=== PATIENT | female | born 1970 | race African-American/Black ===

== ENCOUNTER 2018-10-21 06:41 | Inpatient (IN) | payer MEDICAID ==
[~2018-10-21] VITALS: Ht 152.4 cm; Wt 118.8 kg
[2018-10-21] MEDS ORDERED: IBUPROFEN 600MG TABLET PO STA (08:25)
[2018-10-21 09:05] LABS: CHLORIDE 101 mEq/L (98-107)
[2018-10-21 09:09] LABS: BASOPHILS % 0.9 % (0.0-2.0); EOSINOPHILS % 1.1 % (0.0-5.0); HEMATOCRIT. 27.1 % (36.0-48.0); HEMOGLOBIN. 7.7 g/dL (12.0-16.0); LYMPHOCYTES % 16.2 % (20.0-50.0); MEAN CORPUSCULAR HEMOGLOBIN 18.5 pg (28.0-32.0); MEAN CORPUSCULAR VOLUME 65.1 fL (81.0-99.0); MEAN PLATELET VOLUME 8.7 fl (7.4-10.4); MONOCYTES % 8.5 % (2.0-8.0); NEUTROPHILS % 73.3 % (40.0-76.0); PLATELET 586 x1000/uL (130-400); RED BLOOD CELL COUNT 4.17 mill/uL (4.2-5.4); RED CELL DISTRIBUTION WIDTH 23.2 % (11.6-14.6)
[2018-10-21 10:08] LABS: PLATELET ESTIMATE INCREASED
[2018-10-21] MEDS ORDERED: ASPIRIN 81MG TABLET PO ONE (12:15)
[2018-10-21 15:20] LABS: HEPATITIS B SURFACE ANTIGEN NEGATIVE
[2018-10-21 15:50] LABS: HEPATITIS A AB IGM NEGATIVE (NEGATIVE)
[2018-10-21 16:03] LABS: FERRITIN < 5 ng/mL (10-291)
[2018-10-21] MEDS: MORPHINE SULFATE 4 MG/ML CPJ (NOT FOR IM USE) IV PRN (21:52)
[2018-10-21] MEDS ORDERED: IOHEXOL-350 100 ML BOTTLE ONE (23:01)
[2018-10-22] VITALS (12 sets, daily range): BP systolic 125–176; BP diastolic 66–93
[2018-10-22] MEDS: FERROUS SULFATE 325MG TABLET PO SCH ×3 (08:00→18:00)
[2018-10-22] MEDS: ASPIRIN 81MG TABLET PO SCH (09:00)
[2018-10-22] MEDS: DOCUSATE SODIUM 100MG CAPSULE PO SCH ×2 (09:00→17:00)
[2018-10-22 10:53] LABS: BASOPHILS % 0.7 % (0.0-2.0); EOSINOPHILS % 0.1 % (0.0-5.0); HEMATOCRIT. 28.8 % (36.0-48.0); HEMOGLOBIN. 7.9 g/dL (12.0-16.0); LYMPHOCYTES % 13.5 % (20.0-50.0); MEAN CORPUSCULAR HEMOGLOBIN 18.4 pg (28.0-32.0); MEAN CORPUSCULAR VOLUME 66.5 fL (81.0-99.0); MEAN PLATELET VOLUME 8.9 fl (7.4-10.4); MONOCYTES % 6.6 % (2.0-8.0); NEUTROPHILS % 79.1 % (40.0-76.0); PLATELET 647 x1000/uL (130-400); RED BLOOD CELL COUNT 4.33 mill/uL (4.2-5.4); RED CELL DISTRIBUTION WIDTH 23.3 % (11.6-14.6)
[2018-10-22 11:02] LABS: CHLORIDE 99 mEq/L (98-107)
[2018-10-22] MEDS: ENOXAPARIN 30MG/0.3ML SYR SUBCUT SCH (13:00)
[2018-10-22 16:00] LABS: T4 FREE 1.15 ng/dL (0.76-1.46)
[2018-10-22 16:14] LABS: CREATINE KINASE MB FRACTION 8.7 ng/mL (0.5-3.6)
[2018-10-22 20:15] LABS: BG BASE EXCESS 4.2 mmol/L (-2.0-2.0); BG CARBOXYHEMOGLOBIN 1.4 % (0.5-1.5); BG DEOXYHEMOGLOBIN 17.7 % (0.0-5.0); BG FRACTION INSPIRED OXYGEN 28; BG HCO3 ACT 33.2 mmol/L (22.0-26.0); BG METHEMOGLOBIN 0.5 % (0.0-1.5); BG OXYHEMOGLOBIN 80.4 % (94.0-97.0); BG PCO2 82.7 mmHg (35.0-45.0); BG PH 7.221 (7.350-7.450); BG PO2 57.3 mmHg (75.0-100.0); BG SAMPLE SITE LEFT RADIAL; BG TOTAL HEMOGLOBIN 8.6 g/dL (12.0-18.0); BG VENT MODE NASAL CANNULA
[2018-10-22 23:06] LABS: BG BASE EXCESS 7.8 mmol/L (-2.0-2.0); BG BILEVEL POS AIRWAY PRESSURE 18/5; BG CARBOXYHEMOGLOBIN 1.6 % (0.5-1.5); BG DEOXYHEMOGLOBIN 4.3 % (0.0-5.0); BG FRACTION INSPIRED OXYGEN 60; BG HCO3 ACT 35.8 mmol/L (22.0-26.0); BG METHEMOGLOBIN 0.6 % (0.0-1.5); BG OXYGEN SATURATION 95.6 % (92.0-98.5); BG OXYHEMOGLOBIN 93.5 % (94.0-97.0); BG PCO2 76.3 mmHg (35.0-45.0); BG PH 7.289 (7.350-7.450); BG PO2 90.8 mmHg (75.0-100.0); BG SAMPLE SITE RIGHT RADIAL; BG TOTAL HEMOGLOBIN 8.3 g/dL (12.0-18.0); BG VENT MODE MASK - BIPAP; BG VENT RATE 20 set
[2018-10-23] VITALS (102 sets, daily range): BP systolic 112–174; BP diastolic 53–117
[2018-10-23] MEDS: ENOXAPARIN 30MG/0.3ML SYR SUBCUT SCH (00:19)
[2018-10-23 01:55] LABS: CREATINE KINASE MB FRACTION 8.7 ng/mL (0.5-3.6)
[2018-10-23 05:34] LABS: BASOPHILS % 0.2 % (0.0-2.0); HEMATOCRIT. 24.8 % (36.0-48.0); MEAN CORPUSCULAR HEMOGLOBIN 18.1 pg (28.0-32.0); MEAN CORPUSCULAR VOLUME 64.9 fL (81.0-99.0); MEAN PLATELET VOLUME 8.8 fl (7.4-10.4); MONOCYTES % 8.2 % (2.0-8.0); NEUTROPHILS % 80.6 % (40.0-76.0); PLATELET 512 x1000/uL (130-400); RED BLOOD CELL COUNT 3.83 mill/uL (4.2-5.4); RED CELL DISTRIBUTION WIDTH 23.2 % (11.6-14.6)
[2018-10-23 05:39] LABS: CHLORIDE 102 mEq/L (98-107)
[2018-10-23 05:47] LABS: CREATINE KINASE MB FRACTION 6.6 ng/mL (0.5-3.6)
[2018-10-23 06:25] LABS: HEMOGLOBIN. 6.9 g/dL (12.0-16.0)
[2018-10-23] MEDS: HALOPERIDOL LACTATE 5MG/ML VIAL IM PRN (06:56)
[2018-10-23] MEDS: LORAZEPAM 2MG/ML CPJ IV PRN ×2 (06:57→14:06)
[2018-10-23] MEDS: FERROUS SULFATE 325MG TABLET PO SCH ×3 (07:00→17:00)
[2018-10-23 08:19] LABS: BG BASE EXCESS 7.2 mmol/L (-2.0-2.0); BG BILEVEL POS AIRWAY PRESSURE 18/5; BG DEOXYHEMOGLOBIN 3.9 % (0.0-5.0); BG HCO3 ACT 35.5 mmol/L (22.0-26.0); BG METHEMOGLOBIN 0.4 % (0.0-1.5); BG OXYHEMOGLOBIN 94.7 % (94.0-97.0); BG PCO2 79.2 mmHg (35.0-45.0); BG PH 7.269 (7.350-7.450); BG PO2 95.5 mmHg (75.0-100.0); BG SAMPLE SITE RIGHT BRACHIAL; BG TOTAL HEMOGLOBIN 8.3 g/dL (12.0-18.0); BG VENT MODE MASK - BIPAP; BG VENT RATE 20 set
[2018-10-23] MEDS: ASPIRIN 81MG TABLET PO SCH (09:00)
[2018-10-23] MEDS: DOCUSATE SODIUM 100MG CAPSULE PO SCH ×2 (09:00→17:00)
[2018-10-23] MEDS: DEXT 5%/0.45% NACL 1000ML 1,000 ML IV SCH ×2 (10:44→21:44)
[2018-10-23 12:08] LABS: BG BASE EXCESS 8.8 mmol/L (-2.0-2.0); BG CARBOXYHEMOGLOBIN 0.9 % (0.5-1.5); BG DEOXYHEMOGLOBIN 30.2 % (0.0-5.0); BG HCO3 ACT 36.1 mmol/L (22.0-26.0); BG METHEMOGLOBIN 0.7 % (0.0-1.5); BG OXYGEN SATURATION 69.3 % (92.0-98.5); BG OXYHEMOGLOBIN 68.2 % (94.0-97.0); BG PCO2 70.3 mmHg (35.0-45.0); BG PH 7.329 (7.350-7.450); BG PO2 40.2 mmHg (75.0-100.0); BG SAMPLE SITE RIGHT RADIAL; BG TIDAL VOLUME(mL) 550 mL; BG TOTAL HEMOGLOBIN 8.3 g/dL (12.0-18.0); BG VENT MODE VENT - A/C; BG VENT RATE 18 set
[2018-10-23] MEDS ORDERED: CLONIDINE 0.1MG TABLET PO PRN (12:45)
[2018-10-23] MEDS: PROPOFOL 10MG/ML 100ML 100 ML IV PRN ×4 (12:47→21:45)
[2018-10-23 12:53] LABS: HCG SCREEN NEGATIVE
[2018-10-23] MEDS ORDERED: SODIUM CHLORIDE 0.9% 10ML VIAL ONE (13:20)
[2018-10-23] MEDS ORDERED: ETOMIDATE 2MG/ML 10ML VIAL IV ONE (13:20)
[2018-10-23] MEDS ORDERED: VECURONIUM BROMIDE 10 MG/VIAL IV ONE (13:20)
[2018-10-23] MEDS: IPRATROPIUM/ALBUTEROL 0.5-3(2.5)MG/3ML NEB HHN PRN (13:24)
[2018-10-23] MEDS ORDERED: FENTANYL CITRATE/PF 500 MCG in SODIUM CHLORIDE 0.9% 40 ML IV PRN (14:30)
[2018-10-23 15:24] LABS: *AMPHETAMINES SCREEN URINE NEGATIVE (NEGATIVE)
[2018-10-23 15:25] LABS: *BARBITURATES SCREEN URINE NEGATIVE (NEGATIVE); *BENZODIAZEPINES SCREEN URINE NEGATIVE (NEGATIVE); *COCAINE SCREEN URINE NEGATIVE (NEGATIVE); METHADONE URINE SCREEN NEGATIVE (NEGATIVE); OPIATES URINE SCREEN NEGATIVE (NEGATIVE); PHENCYCLIDINE URINE SCREEN NEGATIVE (NEGATIVE)
[2018-10-23 15:27] LABS: CANNABINOID URINE SCREEN NEGATIVE (NEGATIVE)
[2018-10-23 15:30] LABS: BG BASE EXCESS 10.1 mmol/L (-2.0-2.0); BG CARBOXYHEMOGLOBIN 0.6 % (0.5-1.5); BG DEOXYHEMOGLOBIN 0.3 % (0.0-5.0); BG FRACTION INSPIRED OXYGEN 100; BG HCO3 ACT 31.6 mmol/L (22.0-26.0); BG METHEMOGLOBIN 0.2 % (0.0-1.5); BG OXYGEN SATURATION 99.7 % (92.0-98.5); BG OXYHEMOGLOBIN 98.9 % (94.0-97.0); BG PCO2 30.2 mmHg (35.0-45.0); BG PH 7.638 (7.350-7.450); BG PO2 295.2 mmHg (75.0-100.0); BG SAMPLE SITE RIGHT RADIAL; BG TIDAL VOLUME(mL) 550 mL; BG TOTAL HEMOGLOBIN 7.9 g/dL (12.0-18.0); BG VENT MODE VENT - A/C; BG VENT RATE 18 set
[2018-10-23] MEDS: FENTANYL CITRATE/PF 500 MCG in SODIUM CHLORIDE 0.9% 40 ML IV PRN ×2 (15:41→23:11)
[2018-10-23] MEDS: FUROSEMIDE 40MG/4ML VIAL IVP SCH (17:12)
[2018-10-23] MEDS: METHYLPREDNISOLONE SOD SUCC 40 MG/ML VIAL IV SCH ×2 (17:12→21:15)
[2018-10-23 23:52] LABS: HEMATOCRIT 31.3 % (36.0-48.0); HEMOGLOBIN 9.4 g/dL (12.0-16.0)
[2018-10-24] VITALS (67 sets, daily range): BP systolic 116–146; BP diastolic 60–93
[2018-10-24] MEDS: LORAZEPAM 2MG/ML CPJ IV PRN (00:34)
[2018-10-24] MEDS: PROPOFOL 10MG/ML 100ML 100 ML IV PRN ×7 (00:44→20:04)
[2018-10-24 01:28] LABS: INR 1.2
[2018-10-24] MEDS: METHYLPREDNISOLONE SOD SUCC 40 MG/ML VIAL IV SCH ×3 (05:33→20:05)
[2018-10-24 05:34] LABS: BG BASE EXCESS 9.3 mmol/L (-2.0-2.0); BG CARBOXYHEMOGLOBIN 0.2 % (0.5-1.5); BG DEOXYHEMOGLOBIN 5.6 % (0.0-5.0); BG FRACTION INSPIRED OXYGEN 40; BG HCO3 ACT 31.5 mmol/L (22.0-26.0); BG OXYGEN SATURATION 94.3 % (92.0-98.5); BG OXYHEMOGLOBIN 93.2 % (94.0-97.0); BG PCO2 34.3 mmHg (35.0-45.0); BG PH 7.581 (7.350-7.450); BG PO2 65.6 mmHg (75.0-100.0); BG SAMPLE SITE RIGHT RADIAL; BG TIDAL VOLUME(mL) 550 mL; BG VENT MODE VENT - A/C; BG VENT RATE 14 set
[2018-10-24] MEDS: FERROUS SULFATE 325MG TABLET PO SCH ×3 (06:04→17:46)
[2018-10-24 06:24] LABS: HEMATOCRIT. 31.4 % (36.0-48.0); HEMOGLOBIN. 9.3 g/dL (12.0-16.0); MEAN CORPUSCULAR HEMOGLOBIN 19.7 pg (28.0-32.0); MEAN CORPUSCULAR VOLUME 66.4 fL (81.0-99.0); MEAN PLATELET VOLUME 9.5 fl (7.4-10.4); PLATELET 433 x1000/uL (130-400); RED BLOOD CELL COUNT 4.73 mill/uL (4.2-5.4); RED CELL DISTRIBUTION WIDTH 25.5 % (11.6-14.6)
[2018-10-24 06:32] LABS: CHLORIDE 103 mEq/L (98-107)
[2018-10-24] MEDS: DOCUSATE SODIUM SUGAR FREE 100MG/10ML UDC NG SCH ×2 (09:16→17:46)
[2018-10-24] MEDS: FUROSEMIDE 40MG/4ML VIAL IVP SCH (09:16)
[2018-10-24] MEDS: ASPIRIN 81MG TABLET PO SCH (09:16)
[2018-10-24] MEDS ORDERED: CLOPIDOGREL 75MG TABLET PO SCH (10:00)
[2018-10-24] MEDS ORDERED: VANCOMYCIN 2,000 MG in DEXT 5% WATER 500 ML IV SCH (11:00)
[2018-10-24] MEDS: FENTANYL CITRATE/PF 500 MCG in SODIUM CHLORIDE 0.9% 40 ML IV PRN (11:20)
[2018-10-24] MEDS: LACTULOSE 20G/30ML UDC PO SCH (11:22)
[2018-10-24] MEDS: PIPERACILLIN/TAZ 3.375G PREMIX 50 ML IV SCH ×3 (14:12→23:25)
[2018-10-24] MEDS: PANTOPRAZOLE SODIUM 40 MG/VIAL IV SCH (15:56)
[2018-10-24] MEDS: MORPHINE SULFATE 4 MG/ML CPJ (NOT FOR IM USE) IV PRN (23:23)
[2018-10-25] VITALS (89 sets, daily range): BP systolic 96–137; BP diastolic 42–81
[2018-10-25] MEDS: PROPOFOL 10MG/ML 100ML 100 ML IV PRN ×6 (02:09→22:23)
[2018-10-25] MEDS: FENTANYL CITRATE/PF 500 MCG in SODIUM CHLORIDE 0.9% 40 ML IV PRN ×2 (02:10→12:51)
[2018-10-25 05:59] LABS: HEMATOCRIT. 30.2 % (36.0-48.0); HEMOGLOBIN. 8.9 g/dL (12.0-16.0); MEAN CORPUSCULAR HEMOGLOBIN 19.7 pg (28.0-32.0); MEAN CORPUSCULAR VOLUME 66.6 fL (81.0-99.0); MEAN PLATELET VOLUME 8.8 fl (7.4-10.4); PLATELET 375 x1000/uL (130-400); RED BLOOD CELL COUNT 4.53 mill/uL (4.2-5.4); RED CELL DISTRIBUTION WIDTH 25.5 % (11.6-14.6)
[2018-10-25] MEDS: PIPERACILLIN/TAZ 3.375G PREMIX 50 ML IV SCH ×3 (06:08→18:30)
[2018-10-25] MEDS: VANCOMYCIN 1500MG in DEXTROSE 5% WATER 250ML IV SCH ×2 (06:08→22:58)
[2018-10-25] MEDS: FERROUS SULFATE 325MG TABLET PO SCH ×3 (06:09→18:30)
[2018-10-25 06:14] LABS: CHLORIDE 100 mEq/L (98-107)
[2018-10-25 08:40] LABS: BG BASE EXCESS 8.9 mmol/L (-2.0-2.0); BG CARBOXYHEMOGLOBIN 0.6 % (0.5-1.5); BG DEOXYHEMOGLOBIN 7.4 % (0.0-5.0); BG FRACTION INSPIRED OXYGEN 40; BG HCO3 ACT 34.7 mmol/L (22.0-26.0); BG METHEMOGLOBIN 0.3 % (0.0-1.5); BG OXYGEN SATURATION 92.5 % (92.0-98.5); BG OXYHEMOGLOBIN 91.7 % (94.0-97.0); BG PCO2 54.6 mmHg (35.0-45.0); BG PH 7.421 (7.350-7.450); BG PO2 68.9 mmHg (75.0-100.0); BG SAMPLE SITE LEFT RADIAL; BG TIDAL VOLUME(mL) 500 mL; BG TOTAL HEMOGLOBIN 9.9 g/dL (12.0-18.0); BG VENT MODE VENT - A/C; BG VENT RATE 12 set
[2018-10-25 09:05] LABS: NUCLEATED RED BLOOD CELLS 3 /100 WBC; PLATELET ESTIMATE NORMAL
[2018-10-25] MEDS: HALOPERIDOL LACTATE 5MG/ML VIAL IM PRN (09:40)
[2018-10-25] MEDS: PANTOPRAZOLE SODIUM 40 MG/VIAL IV SCH (09:40)
[2018-10-25] MEDS: METHYLPREDNISOLONE SOD SUCC 40 MG/ML VIAL IV SCH ×2 (09:40→21:32)
[2018-10-25] MEDS: DOCUSATE SODIUM SUGAR FREE 100MG/10ML UDC NG SCH ×2 (09:40→18:30)
[2018-10-25] MEDS: LACTULOSE 20G/30ML UDC PO SCH (09:40)
[2018-10-25] MEDS: LORAZEPAM 2MG/ML CPJ IV PRN ×3 (09:41→18:30)
[2018-10-25] MEDS: FUROSEMIDE 40MG/4ML VIAL IVP SCH (09:50)
[2018-10-25] MEDS ORDERED: POTASSIUM CHLORIDE 20MEQ TABLET SR PO NR (10:39)
[2018-10-25 13:15] LABS: NUCLEATED RED BLOOD CELLS 1 /100 WBC; PLATELET ESTIMATE INCREASED
[2018-10-26] VITALS (86 sets, daily range): BP systolic 103–135; BP diastolic 46–82
[2018-10-26] MEDS: FENTANYL CITRATE/PF 500 MCG in SODIUM CHLORIDE 0.9% 40 ML IV PRN ×3 (01:00→17:41)
[2018-10-26] MEDS: PIPERACILLIN/TAZ 3.375G PREMIX 50 ML IV SCH ×4 (01:03→17:25)
[2018-10-26] MEDS: PROPOFOL 10MG/ML 100ML 100 ML IV PRN ×7 (01:29→21:14)
[2018-10-26 05:49] LABS: HEMATOCRIT. 30.5 % (36.0-48.0); HEMOGLOBIN. 8.7 g/dL (12.0-16.0); MEAN CORPUSCULAR HEMOGLOBIN 19.4 pg (28.0-32.0); MEAN CORPUSCULAR VOLUME 67.9 fL (81.0-99.0); MEAN PLATELET VOLUME 8.8 fl (7.4-10.4); PLATELET 306 x1000/uL (130-400); RED CELL DISTRIBUTION WIDTH 25.9 % (11.6-14.6)
[2018-10-26 08:37] LABS: BG BASE EXCESS 6.4 mmol/L (-2.0-2.0); BG CARBOXYHEMOGLOBIN 0.8 % (0.5-1.5); BG DEOXYHEMOGLOBIN 4.5 % (0.0-5.0); BG FRACTION INSPIRED OXYGEN 40; BG METHEMOGLOBIN 0.2 % (0.0-1.5); BG OXYGEN SATURATION 95.5 % (92.0-98.5); BG OXYHEMOGLOBIN 94.5 % (94.0-97.0); BG PCO2 51.1 mmHg (35.0-45.0); BG PH 7.414 (7.350-7.450); BG PO2 80.5 mmHg (75.0-100.0); BG SAMPLE SITE LEFT RADIAL; BG TIDAL VOLUME(mL) 500 mL; BG TOTAL HEMOGLOBIN 9.7 g/dL (12.0-18.0); BG VENT MODE VENT - A/C; BG VENT RATE 12 set
[2018-10-26] MEDS ORDERED: POTASSIUM CHLORIDE 20MEQ TABLET SR PO SCH (09:00)
[2018-10-26] MEDS: FERROUS SULFATE 325MG TABLET PO SCH ×3 (09:17→17:25)
[2018-10-26] MEDS: DOCUSATE SODIUM SUGAR FREE 100MG/10ML UDC NG SCH (09:18)
[2018-10-26] MEDS: LACTULOSE 20G/30ML UDC PO SCH (09:18)
[2018-10-26] MEDS: PANTOPRAZOLE SODIUM 40 MG/VIAL IV SCH (09:18)
[2018-10-26] MEDS: FUROSEMIDE 40MG/4ML VIAL IVP SCH (09:19)
[2018-10-26] MEDS: LORAZEPAM 2MG/ML CPJ IV PRN ×2 (09:49→17:25)
[2018-10-26] MEDS: METHYLPREDNISOLONE SOD SUCC 40 MG/ML VIAL IV SCH ×2 (09:50→21:01)
[2018-10-26 11:51] LABS: NUCLEATED RED BLOOD CELLS 1 /100 WBC; PLATELET ESTIMATE NORMAL
[2018-10-26] MEDS ORDERED: DOCUSATE SODIUM 250MG CAPSULE PO SCH (12:30)
[2018-10-26] MEDS ORDERED: PROPOFOL 10MG/ML 100ML 100 ML IV PRN ×2 (17:15→18:45)
[2018-10-26] MEDS: IPRATROPIUM/ALBUTEROL 0.5-3(2.5)MG/3ML NEB HHN PRN (20:17)
[2018-10-26] MEDS: VANCOMYCIN 1250MG in DEXTROSE 5% WATER 250ML IV SCH (21:01)
[2018-10-27] VITALS (58 sets, daily range): BP systolic 97–163; BP diastolic 48–81
[2018-10-27] MEDS: IPRATROPIUM/ALBUTEROL 0.5-3(2.5)MG/3ML NEB HHN PRN ×6 (00:08→20:23)
[2018-10-27] MEDS: PROPOFOL 10MG/ML 100ML 100 ML IV PRN ×2 (01:35→06:58)
[2018-10-27 05:33] LABS: HEMATOCRIT. 32.2 % (36.0-48.0); HEMOGLOBIN. 9.3 g/dL (12.0-16.0); MEAN CORPUSCULAR HEMOGLOBIN 19.5 pg (28.0-32.0); MEAN CORPUSCULAR VOLUME 67.4 fL (81.0-99.0); MEAN PLATELET VOLUME 9.2 fl (7.4-10.4); PLATELET 252 x1000/uL (130-400); RED BLOOD CELL COUNT 4.79 mill/uL (4.2-5.4); RED CELL DISTRIBUTION WIDTH 25.9 % (11.6-14.6)
[2018-10-27] MEDS: PIPERACILLIN/TAZ 3.375G PREMIX 50 ML IV SCH ×4 (05:39→17:47)
[2018-10-27] MEDS: FERROUS SULFATE 325MG TABLET PO SCH ×3 (05:40→16:44)
[2018-10-27 06:19] LABS: CHLORIDE 103 mEq/L (98-107)
[2018-10-27 07:19] LABS: ATYPICAL LYMPHOCYTES 1; PLATELET ESTIMATE NORMAL
[2018-10-27] MEDS: FUROSEMIDE 40MG/4ML VIAL IVP SCH (08:34)
[2018-10-27] MEDS: DOCUSATE SODIUM SUGAR FREE 100MG/10ML UDC NG SCH (08:34)
[2018-10-27] MEDS: LACTULOSE 20G/30ML UDC PO SCH (08:34)
[2018-10-27] MEDS: METHYLPREDNISOLONE SOD SUCC 40 MG/ML VIAL IV SCH (08:34)
[2018-10-27] MEDS: PANTOPRAZOLE SODIUM 40 MG/VIAL IV SCH (08:35)
[2018-10-27 08:54] LABS: BG BASE EXCESS 6.3 mmol/L (-2.0-2.0); BG CARBOXYHEMOGLOBIN 0.6 % (0.5-1.5); BG DEOXYHEMOGLOBIN 4.3 % (0.0-5.0); BG FRACTION INSPIRED OXYGEN 40; BG HCO3 ACT 31.8 mmol/L (22.0-26.0); BG METHEMOGLOBIN 0.3 % (0.0-1.5); BG OXYGEN SATURATION 95.7 % (92.0-98.5); BG OXYHEMOGLOBIN 94.8 % (94.0-97.0); BG PCO2 50.8 mmHg (35.0-45.0); BG PH 7.415 (7.350-7.450); BG SAMPLE SITE RIGHT RADIAL; BG TIDAL VOLUME(mL) 500 mL; BG TOTAL HEMOGLOBIN 10.2 g/dL (12.0-18.0); BG VENT MODE VENT - A/C; BG VENT RATE 12 set
[2018-10-27] MEDS: POTASSIUM CHLORIDE 20MEQ/PACKET NG SCH (10:30)
[2018-10-27 11:33] LABS: BG BASE EXCESS 10.4 mmol/L (-2.0-2.0); BG CARBOXYHEMOGLOBIN 0.5 % (0.5-1.5); BG DEOXYHEMOGLOBIN 7.1 % (0.0-5.0); BG FRACTION INSPIRED OXYGEN 40; BG HCO3 ACT 37.2 mmol/L (22.0-26.0); BG METHEMOGLOBIN 0.3 % (0.0-1.5); BG OXYGEN SATURATION 92.8 % (92.0-98.5); BG OXYHEMOGLOBIN 92.1 % (94.0-97.0); BG PCO2 61.8 mmHg (35.0-45.0); BG PH 7.397 (7.350-7.450); BG PO2 70.2 mmHg (75.0-100.0); BG PRESSURE SUPPORT 8; BG SAMPLE SITE RIGHT RADIAL; BG TOTAL HEMOGLOBIN 11.1 g/dL (12.0-18.0); BG VENT MODE VENT - CPAP
[2018-10-27 13:35] LABS: BG BASE EXCESS 6.5 mmol/L (-2.0-2.0); BG CARBOXYHEMOGLOBIN 0.5 % (0.5-1.5); BG DEOXYHEMOGLOBIN 6.3 % (0.0-5.0); BG FRACTION INSPIRED OXYGEN 40; BG HCO3 ACT 32.7 mmol/L (22.0-26.0); BG METHEMOGLOBIN 0.4 % (0.0-1.5); BG OXYGEN SATURATION 93.6 % (92.0-98.5); BG OXYHEMOGLOBIN 92.8 % (94.0-97.0); BG PCO2 55.4 mmHg (35.0-45.0); BG PH 7.389 (7.350-7.450); BG PO2 75.1 mmHg (75.0-100.0); BG PRESSURE SUPPORT 8; BG SAMPLE SITE RIGHT RADIAL; BG TOTAL HEMOGLOBIN 11.1 g/dL (12.0-18.0); BG VENT MODE VENT - CPAP
[2018-10-27] MEDS: VANCOMYCIN 1250MG in DEXTROSE 5% WATER 250ML IV SCH (15:34)
[2018-10-27] MEDS: FENTANYL CITRATE/PF 500 MCG in SODIUM CHLORIDE 0.9% 40 ML IV PRN ×2 (16:29→22:46)
[2018-10-27] MEDS: LORAZEPAM 2MG/ML CPJ IV PRN ×2 (16:44→22:46)
[2018-10-28] VITALS (45 sets, daily range): BP systolic 100–140; BP diastolic 58–114
[2018-10-28] MEDS: IPRATROPIUM/ALBUTEROL 0.5-3(2.5)MG/3ML NEB HHN PRN ×3 (00:23→08:26)
[2018-10-28] MEDS: PIPERACILLIN/TAZ 3.375G PREMIX 50 ML IV SCH ×4 (00:47→18:01)
[2018-10-28] MEDS: FENTANYL CITRATE/PF 500 MCG in SODIUM CHLORIDE 0.9% 40 ML IV PRN ×4 (04:25→23:06)
[2018-10-28] MEDS: LORAZEPAM 2MG/ML CPJ IV PRN ×3 (04:25→22:17)
[2018-10-28] MEDS: FERROUS SULFATE 325MG TABLET PO SCH ×3 (05:27→18:01)
[2018-10-28 05:56] LABS: HEMATOCRIT. 32.6 % (36.0-48.0); HEMOGLOBIN. 9.2 g/dL (12.0-16.0); MEAN CORPUSCULAR HEMOGLOBIN 19.2 pg (28.0-32.0); MEAN CORPUSCULAR VOLUME 68.3 fL (81.0-99.0); MEAN PLATELET VOLUME 9.2 fl (7.4-10.4); PLATELET 195 x1000/uL (130-400); RED BLOOD CELL COUNT 4.78 mill/uL (4.2-5.4); RED CELL DISTRIBUTION WIDTH 25.9 % (11.6-14.6)
[2018-10-28 06:01] LABS: CHLORIDE 104 mEq/L (98-107)
[2018-10-28] MEDS ORDERED: LORAZEPAM 2MG/ML CPJ IV PRN (06:30)
[2018-10-28] MEDS ORDERED: POTASSIUM CHLORIDE 20MEQ TABLET SR PO NR (09:00)
[2018-10-28] MEDS: PANTOPRAZOLE SODIUM 40 MG/VIAL IV SCH (09:48)
[2018-10-28] MEDS: VANCOMYCIN 1250MG in DEXTROSE 5% WATER 250ML IV SCH (09:48)
[2018-10-28] MEDS: DOCUSATE SODIUM SUGAR FREE 100MG/10ML UDC NG SCH (09:48)
[2018-10-28] MEDS: FUROSEMIDE 40MG/4ML VIAL IVP SCH (09:48)
[2018-10-28] MEDS: POTASSIUM CHLORIDE 20MEQ/PACKET NG SCH (09:49)
[2018-10-28 10:43] LABS: PLATELET ESTIMATE NORMAL
[2018-10-28 11:45] LABS: BG BASE EXCESS 10.1 mmol/L (-2.0-2.0); BG CARBOXYHEMOGLOBIN 0.9 % (0.5-1.5); BG DEOXYHEMOGLOBIN 5.6 % (0.0-5.0); BG FRACTION INSPIRED OXYGEN 40; BG HCO3 ACT 37.7 mmol/L (22.0-26.0); BG METHEMOGLOBIN 0.1 % (0.0-1.5); BG OXYGEN SATURATION 94.3 % (92.0-98.5); BG OXYHEMOGLOBIN 93.4 % (94.0-97.0); BG PCO2 68.7 mmHg (35.0-45.0); BG PH 7.357 (7.350-7.450); BG PO2 78.8 mmHg (75.0-100.0); BG PRESSURE SUPPORT 8; BG SAMPLE SITE RIGHT RADIAL; BG TOTAL HEMOGLOBIN 10.9 g/dL (12.0-18.0); BG VENT MODE VENT - CPAP
[2018-10-28] MEDS: RISPERIDONE 1MG TABLET PO SCH (21:40)
[2018-10-29] VITALS (49 sets, daily range): BP systolic 86–136; BP diastolic 45–79
[2018-10-29] MEDS: PIPERACILLIN/TAZ 3.375G PREMIX 50 ML IV SCH ×4 (01:01→18:14)
[2018-10-29] MEDS: VANCOMYCIN 1250MG in DEXTROSE 5% WATER 250ML IV SCH ×2 (02:43→20:52)
[2018-10-29] MEDS: FENTANYL CITRATE/PF 500 MCG in SODIUM CHLORIDE 0.9% 40 ML IV PRN ×2 (04:23→10:40)
[2018-10-29] MEDS: LORAZEPAM 2MG/ML CPJ IV PRN ×4 (04:23→21:55)
[2018-10-29] MEDS: FERROUS SULFATE 325MG TABLET PO SCH ×3 (05:00→16:28)
[2018-10-29 06:56] LABS: HEMOGLOBIN. 9.3 g/dL (12.0-16.0); MEAN CORPUSCULAR HEMOGLOBIN 19.9 pg (28.0-32.0); MEAN CORPUSCULAR VOLUME 68.3 fL (81.0-99.0); MEAN PLATELET VOLUME 8.8 fl (7.4-10.4); PLATELET 163 x1000/uL (130-400); RED BLOOD CELL COUNT 4.69 mill/uL (4.2-5.4); RED CELL DISTRIBUTION WIDTH 26.5 % (11.6-14.6)
[2018-10-29 07:01] LABS: CHLORIDE 103 mEq/L (98-107)
[2018-10-29] MEDS: FUROSEMIDE 40MG/4ML VIAL IVP SCH (08:39)
[2018-10-29] MEDS: DOCUSATE SODIUM SUGAR FREE 100MG/10ML UDC NG SCH (08:39)
[2018-10-29] MEDS: RISPERIDONE 1MG TABLET PO SCH ×2 (08:40→20:52)
[2018-10-29] MEDS: POTASSIUM CHLORIDE 20MEQ/PACKET NG SCH (08:40)
[2018-10-29] MEDS: PANTOPRAZOLE SODIUM 40 MG/VIAL IV SCH (08:44)
[2018-10-29] MEDS: IPRATROPIUM/ALBUTEROL 0.5-3(2.5)MG/3ML NEB HHN PRN ×4 (08:46→19:53)
[2018-10-29 09:38] LABS: PLATELET ESTIMATE NORMAL
[2018-10-29] MEDS ORDERED: POTASSIUM CHLORIDE 20MEQ TABLET SR PO SCH (10:45)
[2018-10-29] MEDS: MORPHINE SULFATE 4 MG/ML CPJ (NOT FOR IM USE) IV PRN ×3 (13:01→22:20)
[2018-10-30] VITALS (48 sets, daily range): BP systolic 92–141; BP diastolic 48–96
[2018-10-30] MEDS: PIPERACILLIN/TAZ 3.375G PREMIX 50 ML IV SCH ×2 (00:28→06:35)
[2018-10-30] MEDS: ACETAMINOPHEN 325MG TABLET PO PRN ×2 (04:30→11:50)
[2018-10-30] MEDS: IPRATROPIUM/ALBUTEROL 0.5-3(2.5)MG/3ML NEB HHN PRN ×2 (04:32→20:09)
[2018-10-30 05:26] LABS: HEMATOCRIT. 31.7 % (36.0-48.0); HEMOGLOBIN. 9.3 g/dL (12.0-16.0); MEAN CORPUSCULAR VOLUME 68.1 fL (81.0-99.0); MEAN PLATELET VOLUME 9.1 fl (7.4-10.4); PLATELET 141 x1000/uL (130-400); RED BLOOD CELL COUNT 4.66 mill/uL (4.2-5.4); RED CELL DISTRIBUTION WIDTH 27.1 % (11.6-14.6)
[2018-10-30 05:34] LABS: CHLORIDE 104 mEq/L (98-107)
[2018-10-30] MEDS: FERROUS SULFATE 325MG TABLET PO SCH ×3 (06:35→17:44)
[2018-10-30 06:51] LABS: PLATELET ESTIMATE NORMAL
[2018-10-30] MEDS: FUROSEMIDE 40MG/4ML VIAL IVP SCH (09:33)
[2018-10-30] MEDS: POTASSIUM CHLORIDE 20MEQ/PACKET NG SCH (09:33)
[2018-10-30] MEDS: RISPERIDONE 1MG TABLET PO SCH ×2 (09:33→21:00)
[2018-10-30] MEDS: PANTOPRAZOLE SODIUM 40 MG/VIAL IV SCH (09:33)
[2018-10-30] MEDS: DOCUSATE SODIUM SUGAR FREE 100MG/10ML UDC NG SCH (09:34)
[2018-10-30] MEDS: MORPHINE SULFATE 4 MG/ML CPJ (NOT FOR IM USE) IV PRN ×2 (09:39→18:51)
[2018-10-30] MEDS ORDERED: POTASSIUM CHLORIDE 20MEQ TABLET SR PO NR (10:15)
[2018-10-30] MEDS ORDERED: FUROSEMIDE 40MG/4ML VIAL IVP NR (10:15)
[2018-10-30] MEDS ORDERED: LACTULOSE 20G/30ML UDC PO PRN (10:15)
[2018-10-30] MEDS: DEXAMETHASONE 4MG/ML 1ML VIAL IV SCH ×2 (11:50→17:44)
[2018-10-30] MEDS: MEROPENEM 500 MG in SODIUM CHLORIDE 0.9% 50 ML IV SCH ×2 (11:50→20:59)
[2018-10-30] MEDS: LORAZEPAM 2MG/ML CPJ IV PRN (12:12)
[2018-10-30] MEDS: VANCOMYCIN 1250MG in DEXTROSE 5% WATER 250ML IV SCH (15:49)
[2018-10-31] VITALS (34 sets, daily range): BP systolic 101–149; BP diastolic 55–108
[2018-10-31] MEDS: DEXAMETHASONE 4MG/ML 1ML VIAL IV SCH ×4 (01:59→18:00)
[2018-10-31] MEDS: MEROPENEM 500 MG in SODIUM CHLORIDE 0.9% 50 ML IV SCH ×3 (04:56→20:34)
[2018-10-31] MEDS: LORAZEPAM 2MG/ML CPJ IV PRN ×4 (05:06→21:47)
[2018-10-31 05:15] LABS: BASOPHILS % 0.3 % (0.0-2.0); EOSINOPHILS % 0.4 % (0.0-5.0); HEMATOCRIT. 36.9 % (36.0-48.0); HEMOGLOBIN. 10.8 g/dL (12.0-16.0); LYMPHOCYTES % 13.1 % (20.0-50.0); MEAN CORPUSCULAR VOLUME 68.5 fL (81.0-99.0); MONOCYTES % 6.4 % (2.0-8.0); NEUTROPHILS % 79.8 % (40.0-76.0); RED BLOOD CELL COUNT 5.39 mill/uL (4.2-5.4); RED CELL DISTRIBUTION WIDTH 27.5 % (11.6-14.6)
[2018-10-31 05:38] LABS: CHLORIDE 106 mEq/L (98-107)
[2018-10-31] MEDS: FERROUS SULFATE 325MG TABLET PO SCH ×3 (06:21→18:01)
[2018-10-31] MEDS: PANTOPRAZOLE SODIUM 40 MG/VIAL IV SCH (08:35)
[2018-10-31] MEDS: FUROSEMIDE 40MG/4ML VIAL IVP SCH (08:35)
[2018-10-31] MEDS: DOCUSATE SODIUM SUGAR FREE 100MG/10ML UDC NG SCH (08:36)
[2018-10-31] MEDS: POTASSIUM CHLORIDE 20MEQ/PACKET NG SCH (08:36)
[2018-10-31] MEDS: VANCOMYCIN 1250MG in DEXTROSE 5% WATER 250ML IV SCH (08:36)
[2018-10-31] MEDS: RISPERIDONE 1MG TABLET PO SCH ×2 (08:36→21:52)
[2018-10-31 09:53] LABS: MEAN PLATELET VOLUME 8.9 fl (7.4-10.4); PLATELET 126 x1000/uL (130-400)
[2018-10-31] MEDS: MORPHINE SULFATE 4 MG/ML CPJ (NOT FOR IM USE) IV PRN ×2 (10:55→16:19)
[2018-11-01] VITALS (31 sets, daily range): BP systolic 103–143; BP diastolic 44–110
[2018-11-01] MEDS: VANCOMYCIN 1250MG in DEXTROSE 5% WATER 250ML IV SCH ×2 (03:00→20:07)
[2018-11-01] MEDS: MEROPENEM 500 MG in SODIUM CHLORIDE 0.9% 50 ML IV SCH ×3 (05:21→19:25)
[2018-11-01 05:38] LABS: BASOPHILS % 1.2 % (0.0-2.0); EOSINOPHILS % 0.4 % (0.0-5.0); HEMATOCRIT. 35.6 % (36.0-48.0); HEMOGLOBIN. 10.2 g/dL (12.0-16.0); LYMPHOCYTES % 24.9 % (20.0-50.0); MEAN CORPUSCULAR HEMOGLOBIN 20.2 pg (28.0-32.0); MEAN CORPUSCULAR VOLUME 70.3 fL (81.0-99.0); MONOCYTES % 7.7 % (2.0-8.0); NEUTROPHILS % 65.8 % (40.0-76.0); RED BLOOD CELL COUNT 5.07 mill/uL (4.2-5.4); RED CELL DISTRIBUTION WIDTH 27.8 % (11.6-14.6)
[2018-11-01 05:40] LABS: CHLORIDE 109 mEq/L (98-107)
[2018-11-01] MEDS: DEXAMETHASONE 4MG/ML 1ML VIAL IV SCH ×4 (05:51→17:24)
[2018-11-01] MEDS: FERROUS SULFATE 325MG TABLET PO SCH ×3 (07:48→17:25)
[2018-11-01] MEDS: LORAZEPAM 2MG/ML CPJ IV PRN ×2 (07:49→12:12)
[2018-11-01] MEDS: DOCUSATE SODIUM SUGAR FREE 100MG/10ML UDC NG SCH (08:42)
[2018-11-01] MEDS: FUROSEMIDE 40MG/4ML VIAL IVP SCH (08:51)
[2018-11-01] MEDS: PANTOPRAZOLE SODIUM 40 MG/VIAL IV SCH (08:51)
[2018-11-01] MEDS: POTASSIUM CHLORIDE 20MEQ/PACKET NG SCH (08:51)
[2018-11-01] MEDS: RISPERIDONE 1MG TABLET PO SCH ×2 (08:51→20:07)
[2018-11-01] MEDS: MORPHINE SULFATE 4 MG/ML CPJ (NOT FOR IM USE) IV PRN ×2 (08:52→14:48)
[2018-11-01 09:49] LABS: MEAN PLATELET VOLUME 8.9 fl (7.4-10.4); PLATELET 112 x1000/uL (130-400)
[2018-11-01] MEDS: IPRATROPIUM/ALBUTEROL 0.5-3(2.5)MG/3ML NEB HHN PRN (10:03)
[2018-11-01 14:13] LABS: BG BASE EXCESS 7.8 mmol/L (-2.0-2.0); BG CARBOXYHEMOGLOBIN 0.4 % (0.5-1.5); BG DEOXYHEMOGLOBIN 5.8 % (0.0-5.0); BG FRACTION INSPIRED OXYGEN 40; BG HCO3 ACT 33.3 mmol/L (22.0-26.0); BG METHEMOGLOBIN 0.1 % (0.0-1.5); BG OXYGEN SATURATION 94.2 % (92.0-98.5); BG OXYHEMOGLOBIN 93.7 % (94.0-97.0); BG PCO2 50.8 mmHg (35.0-45.0); BG PH 7.434 (7.350-7.450); BG PO2 72.5 mmHg (75.0-100.0); BG PRESSURE SUPPORT 8; BG SAMPLE SITE RIGHT RADIAL; BG TOTAL HEMOGLOBIN 11.4 g/dL (12.0-18.0); BG VENT MODE VENT - CPAP
[2018-11-02] VITALS (87 sets, daily range): BP systolic 84–151; BP diastolic 26–86
[2018-11-02] MEDS: MORPHINE SULFATE 4 MG/ML CPJ (NOT FOR IM USE) IV PRN ×3 (01:33→15:58)
[2018-11-02] MEDS: MEROPENEM 500 MG in SODIUM CHLORIDE 0.9% 50 ML IV SCH ×3 (04:12→20:03)
[2018-11-02] MEDS: ACETAMINOPHEN 325MG TABLET PO PRN (04:39)
[2018-11-02 05:40] LABS: BASOPHILS % 0.9 % (0.0-2.0); EOSINOPHILS % 0.5 % (0.0-5.0); HEMATOCRIT. 33.6 % (36.0-48.0); HEMOGLOBIN. 9.9 g/dL (12.0-16.0); LYMPHOCYTES % 24.8 % (20.0-50.0); MEAN CORPUSCULAR HEMOGLOBIN 20.7 pg (28.0-32.0); MONOCYTES % 9.7 % (2.0-8.0); NEUTROPHILS % 64.1 % (40.0-76.0); RED BLOOD CELL COUNT 4.79 mill/uL (4.2-5.4); RED CELL DISTRIBUTION WIDTH 28.1 % (11.6-14.6)
[2018-11-02 05:59] LABS: CHLORIDE 110 mEq/L (98-107)
[2018-11-02] MEDS: FERROUS SULFATE 325MG TABLET PO SCH ×3 (06:04→17:00)
[2018-11-02] MEDS: IPRATROPIUM/ALBUTEROL 0.5-3(2.5)MG/3ML NEB HHN PRN (08:30)
[2018-11-02] MEDS: ONDANSETRON HCL 4MG/2ML INJ IV PRN ×2 (08:44→15:57)
[2018-11-02] MEDS: POTASSIUM CHLORIDE 20MEQ/PACKET NG SCH (08:46)
[2018-11-02] MEDS: DOCUSATE SODIUM SUGAR FREE 100MG/10ML UDC NG SCH (08:46)
[2018-11-02] MEDS: FUROSEMIDE 40MG/4ML VIAL IVP SCH (08:51)
[2018-11-02] MEDS: DEXAMETHASONE 4MG/ML 1ML VIAL IV SCH ×2 (08:51→18:29)
[2018-11-02] MEDS: PANTOPRAZOLE SODIUM 40 MG/VIAL IV SCH (08:51)
[2018-11-02] MEDS: RISPERIDONE 1MG TABLET PO SCH ×2 (09:00→20:03)
[2018-11-02 09:14] LABS: BG BASE EXCESS 8.5 mmol/L (-2.0-2.0); BG CARBOXYHEMOGLOBIN 0.2 % (0.5-1.5); BG DEOXYHEMOGLOBIN 1.7 % (0.0-5.0); BG FRACTION INSPIRED OXYGEN 60; BG METHEMOGLOBIN 0.3 % (0.0-1.5); BG OXYGEN SATURATION 98.3 % (92.0-98.5); BG OXYHEMOGLOBIN 97.8 % (94.0-97.0); BG PCO2 52.2 mmHg (35.0-45.0); BG PH 7.432 (7.350-7.450); BG PO2 136.9 mmHg (75.0-100.0); BG PRESSURE SUPPORT 14; BG SAMPLE SITE RIGHT RADIAL; BG TIDAL VOLUME(mL) 500 mL; BG TOTAL HEMOGLOBIN 10.7 g/dL (12.0-18.0); BG VENT MODE VENT - SIMV; BG VENT RATE 10 set
[2018-11-02] MEDS: LORAZEPAM 2MG/ML CPJ IV PRN ×2 (09:27→18:29)
[2018-11-02 11:02] LABS: PLATELET 93 x1000/uL (130-400)
[2018-11-02] MEDS: VANCOMYCIN 1 G PREMIX 200 ML IV SCH ×2 (12:00→23:52)
[2018-11-02] MEDS ORDERED: FENTANYL CITRATE/PF 50MCG/ML 2ML VIAL ONE (13:32)
[2018-11-02] MEDS ORDERED: MIDAZOLAM HCL 5 MG/5 ML VIAL ONE (13:32)
[2018-11-02 13:44] LABS: BG BASE EXCESS 8.7 mmol/L (-2.0-2.0); BG CARBOXYHEMOGLOBIN 0.6 % (0.5-1.5); BG DEOXYHEMOGLOBIN 4.3 % (0.0-5.0); BG FRACTION INSPIRED OXYGEN 40; BG HCO3 ACT 34.4 mmol/L (22.0-26.0); BG METHEMOGLOBIN 0.2 % (0.0-1.5); BG OXYGEN SATURATION 95.7 % (92.0-98.5); BG OXYHEMOGLOBIN 94.9 % (94.0-97.0); BG PCO2 52.7 mmHg (35.0-45.0); BG PH 7.432 (7.350-7.450); BG PO2 80.4 mmHg (75.0-100.0); BG PRESSURE SUPPORT 8; BG SAMPLE SITE RIGHT BRACHIAL; BG TOTAL HEMOGLOBIN 11.5 g/dL (12.0-18.0); BG VENT MODE VENT - CPAP
[2018-11-02] MEDS ORDERED: SIMETHICONE 40 MG/0.6 ML 30ML ONE (14:40)
[2018-11-02] MEDS ORDERED: BACTERIOSTATIC SODIUM CHLORIDE 0.9% 30ML VIAL IJ ONE (14:40)
[2018-11-03] VITALS (38 sets, daily range): BP systolic 94–143; BP diastolic 60–102
[2018-11-03] MEDS: MORPHINE SULFATE 4 MG/ML CPJ (NOT FOR IM USE) IV PRN (02:44)
[2018-11-03] MEDS: MEROPENEM 500 MG in SODIUM CHLORIDE 0.9% 50 ML IV SCH ×3 (03:05→20:46)
[2018-11-03] MEDS: LORAZEPAM 2MG/ML CPJ IV PRN ×2 (03:05→12:34)
[2018-11-03 05:39] LABS: BASOPHILS % 1.3 % (0.0-2.0); HEMATOCRIT. 36.3 % (36.0-48.0); HEMOGLOBIN. 10.6 g/dL (12.0-16.0); LYMPHOCYTES % 16.2 % (20.0-50.0); MEAN CORPUSCULAR HEMOGLOBIN 20.8 pg (28.0-32.0); MEAN CORPUSCULAR VOLUME 71.5 fL (81.0-99.0); MONOCYTES % 6.4 % (2.0-8.0); NEUTROPHILS % 75.1 % (40.0-76.0); RED BLOOD CELL COUNT 5.07 mill/uL (4.2-5.4); RED CELL DISTRIBUTION WIDTH 27.9 % (11.6-14.6)
[2018-11-03] MEDS: FERROUS SULFATE 325MG TABLET PO SCH ×3 (06:08→20:06)
[2018-11-03 06:30] LABS: CHLORIDE 112 mEq/L (98-107)
[2018-11-03] MEDS: FUROSEMIDE 40MG/4ML VIAL IVP SCH (08:45)
[2018-11-03] MEDS: PANTOPRAZOLE SODIUM 40 MG/VIAL IV SCH (08:45)
[2018-11-03] MEDS: DEXAMETHASONE 4MG/ML 1ML VIAL IV SCH (08:45)
[2018-11-03] MEDS: POTASSIUM CHLORIDE 20MEQ/PACKET NG SCH (08:46)
[2018-11-03] MEDS: DOCUSATE SODIUM SUGAR FREE 100MG/10ML UDC NG SCH (08:46)
[2018-11-03] MEDS: RISPERIDONE 1MG TABLET PO SCH ×2 (08:46→20:46)
[2018-11-03 09:22] LABS: PLATELET 85 x1000/uL (130-400)
[2018-11-03] MEDS ORDERED: RACEPINEPHRINE 2.25% 0.5ML NEB VIAL HHN PRN (09:30)
[2018-11-03] MEDS: IPRATROPIUM/ALBUTEROL 0.5-3(2.5)MG/3ML NEB HHN PRN (11:47)
[2018-11-03] MEDS: VANCOMYCIN 1 G PREMIX 200 ML IV SCH (12:34)
[2018-11-03] MEDS: FAMOTIDINE 20MG TABLET PEG SCH (20:46)
[2018-11-04] VITALS (38 sets, daily range): BP systolic 92–148; BP diastolic 31–96
[2018-11-04] MEDS: MEROPENEM 500 MG in SODIUM CHLORIDE 0.9% 50 ML IV SCH ×3 (04:56→20:39)
[2018-11-04 05:03] LABS: RED BLOOD CELL COUNT 5.06 mill/uL (4.2-5.4)
[2018-11-04 05:04] LABS: BASOPHILS % 1.2 % (0.0-2.0); EOSINOPHILS % 2.9 % (0.0-5.0); HEMATOCRIT. 35.8 % (36.0-48.0); HEMOGLOBIN. 10.6 g/dL (12.0-16.0); LYMPHOCYTES % 21.2 % (20.0-50.0); MEAN CORPUSCULAR VOLUME 70.7 fL (81.0-99.0); MONOCYTES % 4.8 % (2.0-8.0); NEUTROPHILS % 69.9 % (40.0-76.0); RED CELL DISTRIBUTION WIDTH 28.3 % (11.6-14.6)
[2018-11-04 05:27] LABS: CHLORIDE 110 mEq/L (98-107)
[2018-11-04] MEDS: FERROUS SULFATE 325MG TABLET PO SCH ×3 (07:23→17:31)
[2018-11-04 10:23] LABS: MEAN PLATELET VOLUME 10.7 fl (7.4-10.4); PLATELET 67 x1000/uL (130-400)
[2018-11-04] MEDS: FUROSEMIDE 40MG/4ML VIAL IVP SCH (11:05)
[2018-11-04] MEDS: DOCUSATE SODIUM SUGAR FREE 100MG/10ML UDC NG SCH (11:05)
[2018-11-04] MEDS: POTASSIUM CHLORIDE 20MEQ/PACKET NG SCH (11:05)
[2018-11-04] MEDS: RISPERIDONE 1MG TABLET PO SCH ×2 (11:05→20:39)
[2018-11-04] MEDS: FAMOTIDINE 20MG TABLET PEG SCH (20:39)
[2018-11-05] VITALS (22 sets, daily range): BP systolic 106–135; BP diastolic 54–100
[2018-11-05] MEDS: MEROPENEM 500 MG in SODIUM CHLORIDE 0.9% 50 ML IV SCH ×3 (04:41→20:52)
[2018-11-05 06:03] LABS: BASOPHILS % 1.2 % (0.0-2.0); EOSINOPHILS % 3.6 % (0.0-5.0); HEMATOCRIT. 37.4 % (36.0-48.0); HEMOGLOBIN. 11.2 g/dL (12.0-16.0); LYMPHOCYTES % 16.3 % (20.0-50.0); MEAN CORPUSCULAR HEMOGLOBIN 21.3 pg (28.0-32.0); MEAN CORPUSCULAR VOLUME 71.4 fL (81.0-99.0); MEAN PLATELET VOLUME 9.9 fl (7.4-10.4); NEUTROPHILS % 73.9 % (40.0-76.0); RED BLOOD CELL COUNT 5.24 mill/uL (4.2-5.4); RED CELL DISTRIBUTION WIDTH 29.5 % (11.6-14.6)
[2018-11-05 06:07] LABS: CHLORIDE 110 mEq/L (98-107)
[2018-11-05] MEDS: DOCUSATE SODIUM SUGAR FREE 100MG/10ML UDC NG SCH (08:37)
[2018-11-05] MEDS: FUROSEMIDE 40MG/4ML VIAL IVP SCH (08:37)
[2018-11-05] MEDS: RISPERIDONE 1MG TABLET PO SCH (08:37)
[2018-11-05] MEDS: POTASSIUM CHLORIDE 20MEQ/PACKET NG SCH (08:37)
[2018-11-05] MEDS: FERROUS SULFATE 325MG TABLET PO SCH ×3 (08:37→17:16)
[2018-11-05] MEDS ORDERED: FUROSEMIDE 20MG/2ML VIAL IVP NR (10:00)
[2018-11-05] MEDS ORDERED: FUROSEMIDE 20MG/2ML VIAL IVP ONE (10:00)
[2018-11-05 13:40] LABS: PLATELET 92 x1000/uL (130-400)
[2018-11-05] MEDS: FAMOTIDINE 20MG TABLET PEG SCH (20:52)
[2018-11-05] MEDS: RISPERIDONE 0.5MG TABLET PO SCH (20:53)
[2018-11-06] VITALS: BP 118/77
[2018-11-06 04:00] VITALS: BP 116/81
[2018-11-06] MEDS: MEROPENEM 500 MG in SODIUM CHLORIDE 0.9% 50 ML IV SCH ×3 (04:42→20:07)
[2018-11-06 08:09] VITALS: BP 133/95
[2018-11-06] MEDS: DOCUSATE SODIUM SUGAR FREE 100MG/10ML UDC NG SCH (08:55)
[2018-11-06] MEDS: FUROSEMIDE 40MG/4ML VIAL IVP SCH (08:55)
[2018-11-06] MEDS: FERROUS SULFATE 325MG TABLET PO SCH ×3 (08:55→18:02)
[2018-11-06] MEDS: RISPERIDONE 0.5MG TABLET PO SCH ×2 (08:55→21:41)
[2018-11-06] MEDS: POTASSIUM CHLORIDE 20MEQ/PACKET NG SCH (08:55)
[2018-11-06 12:00] VITALS: BP 136/96
[2018-11-06] MEDS: AMLODIPINE 2.5MG TABLET PO SCH (13:20)
[2018-11-06 16:00] VITALS: BP 153/89
[2018-11-06 20:00] VITALS: BP 113/78
[2018-11-06] MEDS: FAMOTIDINE 20MG TABLET PEG SCH (21:42)
[2018-11-07] VITALS (7 sets, daily range): BP systolic 3–149; BP diastolic 60–83
[2018-11-07] MEDS: RISPERIDONE 0.5MG TABLET PO SCH ×2 (09:14→21:09)
[2018-11-07] MEDS: FUROSEMIDE 40MG/4ML VIAL IVP SCH (09:14)
[2018-11-07] MEDS: FERROUS SULFATE 325MG TABLET PO SCH ×3 (09:14→18:47)
[2018-11-07] MEDS: DOCUSATE SODIUM SUGAR FREE 100MG/10ML UDC NG SCH (09:14)
[2018-11-07] MEDS: POTASSIUM CHLORIDE 20MEQ/PACKET NG SCH (09:14)
[2018-11-07] MEDS: AMLODIPINE 2.5MG TABLET PO SCH (09:15)
[2018-11-07 12:46] LABS: HEMATOCRIT. 41.4 % (36.0-48.0); HEMOGLOBIN. 12.6 g/dL (12.0-16.0); MEAN CORPUSCULAR HEMOGLOBIN 21.4 pg (28.0-32.0); MEAN CORPUSCULAR VOLUME 70.6 fL (81.0-99.0); PLATELET 123 x1000/uL (130-400); RED BLOOD CELL COUNT 5.86 mill/uL (4.2-5.4); RED CELL DISTRIBUTION WIDTH 31.1 % (11.6-14.6)
[2018-11-07 12:54] LABS: CHLORIDE 115 mEq/L (98-107)
[2018-11-07 13:03] LABS: CREATINE KINASE 51 IU/L (26-192)
[2018-11-07 13:05] LABS: CREATINE KINASE MB FRACTION 1.8 ng/mL (0.5-3.6)
[2018-11-07 13:08] LABS: FIBRINOGEN 354 mg/dL (200-400); INR 1.1; PROTHROMBIN TIME 11.1 sec (9.6-11.0)
[2018-11-07 13:32] LABS: D-DIMER > 35.20 mg/L FEU (<0.50)
[2018-11-07 14:59] LABS: PLATELET ESTIMATE NORMAL
[2018-11-07] MEDS ORDERED: IOHEXOL-350 100 ML BOTTLE ONE (18:21)
[2018-11-07] MEDS ORDERED: ENOXAPARIN 120MG/0.8ML SYR SUBCUT SCH (18:30)
[2018-11-07] MEDS: ENOXAPARIN 120MG/0.8ML SYR SUBCUT SCH (19:58)
[2018-11-07] MEDS: FAMOTIDINE 20MG TABLET PEG SCH (21:09)
[2018-11-08] VITALS: BP 121/78
[2018-11-08 04:00] VITALS: BP 104/72
[2018-11-08 05:51] LABS: BASOPHILS % 1.4 % (0.0-2.0); EOSINOPHILS % 4.8 % (0.0-5.0); HEMATOCRIT. 40.6 % (36.0-48.0); HEMOGLOBIN. 12.1 g/dL (12.0-16.0); LYMPHOCYTES % 13.7 % (20.0-50.0); MEAN CORPUSCULAR HEMOGLOBIN 21.6 pg (28.0-32.0); MEAN CORPUSCULAR VOLUME 72.2 fL (81.0-99.0); MEAN PLATELET VOLUME 9.9 fl (7.4-10.4); MONOCYTES % 5.4 % (2.0-8.0); NEUTROPHILS % 74.7 % (40.0-76.0); PLATELET 132 x1000/uL (130-400); RED BLOOD CELL COUNT 5.62 mill/uL (4.2-5.4); RED CELL DISTRIBUTION WIDTH 31.1 % (11.6-14.6)
[2018-11-08 06:05] LABS: CHLORIDE 114 mEq/L (98-107)
[2018-11-08] MEDS: ENOXAPARIN 120MG/0.8ML SYR SUBCUT SCH ×2 (07:28→19:01)
[2018-11-08 08:00] VITALS: BP 122/87
[2018-11-08] MEDS ORDERED: ENOXAPARIN 40MG/0.4ML SYR SUBCUT SCH (09:00)
[2018-11-08] MEDS: DOCUSATE SODIUM SUGAR FREE 100MG/10ML UDC NG SCH (10:33)
[2018-11-08] MEDS: FUROSEMIDE 40MG/4ML VIAL IVP SCH (10:34)
[2018-11-08] MEDS: AMLODIPINE 2.5MG TABLET PO SCH (10:35)
[2018-11-08] MEDS: POTASSIUM CHLORIDE 20MEQ/PACKET NG SCH (10:35)
[2018-11-08] MEDS: FERROUS SULFATE 325MG TABLET PO SCH ×3 (10:35→19:02)
[2018-11-08] MEDS: RISPERIDONE 0.5MG TABLET PO SCH ×2 (10:36→20:51)
[2018-11-08 12:00] VITALS: BP_SYST 119; BP_SYST 122; BP_DIAS 73; BP_DIAS 87
[2018-11-08 13:09] LABS: PLATELET ESTIMATE NORMAL
[2018-11-08] MEDS ORDERED: SODIUM CHLORIDE 0.9% 500 ML IV ONE (15:30)
[2018-11-08] MEDS ORDERED: SODIUM CHLORIDE 0.9% 250 ML IV ONE (15:30)
[2018-11-08] MEDS ORDERED: SODIUM CHLORIDE 0.45% 500 ML IV ONE (15:45)
[2018-11-08 16:00] VITALS: BP 118/80
[2018-11-08] MEDS ORDERED: SODIUM CHLORIDE 0.45% 500 ML IV SCH (18:45)
[2018-11-08 20:00] VITALS: BP 123/84
[2018-11-08] MEDS: FAMOTIDINE 20MG TABLET PEG SCH (20:51)
[2018-11-09] VITALS (8 sets, daily range): BP systolic 87–129; BP diastolic 49–84
[2018-11-09] MEDS: ENOXAPARIN 120MG/0.8ML SYR SUBCUT SCH ×2 (05:18→16:53)
[2018-11-09] MEDS: FERROUS SULFATE 325MG TABLET PO SCH ×3 (08:37→16:52)
[2018-11-09] MEDS: POTASSIUM CHLORIDE 20MEQ/PACKET NG SCH (08:38)
[2018-11-09] MEDS: AMLODIPINE 2.5MG TABLET PO SCH (08:38)
[2018-11-09] MEDS: DOCUSATE SODIUM SUGAR FREE 100MG/10ML UDC NG SCH (08:41)
[2018-11-09] MEDS: RISPERIDONE 0.5MG TABLET PO SCH ×2 (08:43→20:44)
[2018-11-09] MEDS: FUROSEMIDE 40MG/4ML VIAL IVP SCH (08:49)
[2018-11-09 09:43] LABS: BASOPHILS % 2.1 % (0.0-2.0); EOSINOPHILS % 4.7 % (0.0-5.0); HEMATOCRIT. 39.8 % (36.0-48.0); HEMOGLOBIN. 11.6 g/dL (12.0-16.0); LYMPHOCYTES % 10.7 % (20.0-50.0); MEAN CORPUSCULAR HEMOGLOBIN 21.2 pg (28.0-32.0); MEAN CORPUSCULAR VOLUME 72.5 fL (81.0-99.0); MONOCYTES % 4.3 % (2.0-8.0); NEUTROPHILS % 78.2 % (40.0-76.0); RED BLOOD CELL COUNT 5.49 mill/uL (4.2-5.4); RED CELL DISTRIBUTION WIDTH 32.2 % (11.6-14.6)
[2018-11-09 09:50] LABS: CHLORIDE 119 mEq/L (98-107)
[2018-11-09 10:11] LABS: PLATELET 281 x1000/uL (130-400)
[2018-11-09] MEDS: LORAZEPAM 2MG/ML CPJ IV PRN (10:29)
[2018-11-09] MEDS: METOPROLOL TARTRATE 25MG TABLET PO SCH ×2 (13:24→23:00)
[2018-11-09] MEDS ORDERED: DEXT 5% WATER 100 ML IV NR ×2 (13:45→14:26)
[2018-11-09] MEDS ORDERED: SODIUM CHLORIDE 0.9% 250 ML IV ONE (15:30)
[2018-11-09] MEDS ORDERED: SODIUM CHLORIDE 0.9% 500 ML IV ONE (15:30)
[2018-11-09] MEDS ORDERED: SODIUM CHLORIDE 0.45% 500 ML IV ONE (15:45)
[2018-11-09] MEDS ORDERED: DIGOXIN 500MCG/2ML AMP IV NR (18:24)
[2018-11-09] MEDS ORDERED: DILTIAZEM HCL 5MG/ML 5ML VIAL IV PRN (19:00)
[2018-11-09] MEDS: FAMOTIDINE 20MG TABLET PEG SCH (20:44)
[2018-11-09] MEDS ORDERED: WARFARIN SODIUM 7.5MG TABLET PO NR (22:45)
[2018-11-10] VITALS (95 sets, daily range): BP systolic 64–137; BP diastolic 21–104
[2018-11-10] MEDS ORDERED: SODIUM CHLORIDE 0.9% 1,000 ML IV ONE
[2018-11-10 05:42] LABS: INR 1.1; PROTHROMBIN TIME 11.6 sec (9.6-11.0)
[2018-11-10] MEDS ORDERED: PHENYLEPHRINE 10 MG in DEXT 5% WATER 249 ML IV PRN (06:00)
[2018-11-10] MEDS ORDERED: PHENYLEPHRINE 10 MG in DEXTROSE 5% WATER 250 ML IV PRN (06:00)
[2018-11-10] MEDS: ENOXAPARIN 120MG/0.8ML SYR SUBCUT SCH (06:30)
[2018-11-10 07:01] LABS: BG BASE EXCESS -1.6 mmol/L (-2.0-2.0); BG CARBOXYHEMOGLOBIN 0.4 % (0.5-1.5); BG DEOXYHEMOGLOBIN 4.3 % (0.0-5.0); BG FRACTION INSPIRED OXYGEN 36; BG HCO3 ACT 23.3 mmol/L (22.0-26.0); BG METHEMOGLOBIN 0.3 % (0.0-1.5); BG OXYGEN SATURATION 95.7 % (92.0-98.5); BG PCO2 40.1 mmHg (35.0-45.0); BG PH 7.382 (7.350-7.450); BG PO2 92.1 mmHg (75.0-100.0); BG SAMPLE SITE LEFT RADIAL; BG TOTAL HEMOGLOBIN 8.5 g/dL (12.0-18.0); BG VENT MODE NASAL CANNULA
[2018-11-10] MEDS ORDERED: PHENYLEPHRINE 80 MG in DEXT 5% WATER 500 ML IV PRN (07:28)
[2018-11-10] MEDS ORDERED: ALBUMIN HUMAN 25GM/100ML (25%) IV ONE (07:30)
[2018-11-10] MEDS ORDERED: PANTOPRAZOLE 80 MG in SODIUM CHLORIDE 0.9% 100 ML IV SCH (07:30)
[2018-11-10] MEDS ORDERED: NOREPINEPHRINE 4 MG in DEXT 5% WATER 246 ML IV PRN (07:30)
[2018-11-10 08:05] LABS: EOSINOPHILS % 1.6 % (0.0-5.0); HEMATOCRIT. 25.6 % (36.0-48.0); HEMOGLOBIN. 7.4 g/dL (12.0-16.0); LYMPHOCYTES % 12.7 % (20.0-50.0); MEAN CORPUSCULAR HEMOGLOBIN 21.5 pg (28.0-32.0); MEAN CORPUSCULAR VOLUME 74.3 fL (81.0-99.0); MEAN PLATELET VOLUME 11.4 fl (7.4-10.4); MONOCYTES % 5.9 % (2.0-8.0); NEUTROPHILS % 78.8 % (40.0-76.0); PLATELET 575 x1000/uL (130-400); RED BLOOD CELL COUNT 3.45 mill/uL (4.2-5.4); RED CELL DISTRIBUTION WIDTH 33.4 % (11.6-14.6)
[2018-11-10 08:10] LABS: CHLORIDE 125 mEq/L (98-107)
[2018-11-10 08:11] LABS: INR 1.1; PARTIAL THROMBOPLASTIN TIME 25.3 sec (23.4-31.0); PROTHROMBIN TIME 11.5 sec (9.6-11.0)
[2018-11-10 08:16] LABS: PHOSPHORUS 6.6 mg/dL (2.5-4.9)
[2018-11-10] MEDS: FERROUS SULFATE 325MG TABLET PO SCH ×3 (08:20→18:20)
[2018-11-10] MEDS: PHENYLEPHRINE 40 MG in DEXT 5% WATER 246 ML IV PRN ×2 (08:41→11:56)
[2018-11-10] MEDS ORDERED: DEXTROSE 50% WATER 50ML SYRINGE IV PRN (09:00)
[2018-11-10] MEDS: METOPROLOL TARTRATE 25MG TABLET PO SCH (09:00)
[2018-11-10] MEDS: DOCUSATE SODIUM SUGAR FREE 100MG/10ML UDC NG SCH (09:00)
[2018-11-10] MEDS: RISPERIDONE 0.5MG TABLET PO SCH ×2 (09:00→21:00)
[2018-11-10] MEDS ORDERED: SODIUM CHLORIDE 0.45% 1,000 ML IV ONE (09:00)
[2018-11-10] MEDS: POTASSIUM CHLORIDE 20MEQ/PACKET NG SCH (09:00)
[2018-11-10] MEDS: SODIUM CHLORIDE 0.45% 1,000 ML IV SCH ×4 (09:08→23:13)
[2018-11-10] MEDS: BLOOD SUGAR DIAGNOSTIC STRIP TEST SCH ×3 (09:10→17:48)
[2018-11-10] MEDS: NOREPINEPHRINE 16 MG in DEXT 5% WATER 234 ML IV PRN (09:27)
[2018-11-10] MEDS: INSULIN LISPRO 100 UNITS/ML SUBCUT SCH ×3 (09:27→18:00)
[2018-11-10] MEDS ORDERED: OCTREOTIDE 1,000 MCG in SODIUM CHLORIDE 0.9% 98 ML IV SCH (10:30)
[2018-11-10] MEDS ORDERED: SODIUM CHLORIDE 0.9% 250 ML IV NR (11:30)
[2018-11-10] MEDS: PANTOPRAZOLE SODIUM 40 MG/VIAL IV SCH ×2 (11:30→21:11)
[2018-11-10] MEDS ORDERED: PHENYLEPHRINE 80 MG in DEXT 5% WATER 492 ML IV PRN ×2 (15:26→16:15)
[2018-11-10] MEDS: DIPHENHYDRAMINE 50MG/ML VIAL IV PRN ×2 (15:57→23:54)
[2018-11-10] MEDS: LORAZEPAM 2MG/ML CPJ IV PRN ×2 (15:57→23:54)
[2018-11-10 20:21] LABS: INR 1.1; PROTHROMBIN TIME 11.3 sec (9.6-11.0)
[2018-11-10 20:25] LABS: MEAN CORPUSCULAR HEMOGLOBIN 24.4 pg (28.0-32.0); MEAN PLATELET VOLUME 10.5 fl (7.4-10.4); PLATELET 414 x1000/uL (130-400); RED BLOOD CELL COUNT 2.65 mill/uL (4.2-5.4); RED CELL DISTRIBUTION WIDTH 27.9 % (11.6-14.6)
[2018-11-10 20:29] LABS: CHLORIDE 126 mEq/L (98-107)
[2018-11-10 20:35] LABS: HEMOGLOBIN. 6.5 g/dL (12.0-16.0); TOTAL IRON BINDING CAPACITY 184 ug/dL (250-450)
[2018-11-10 20:36] LABS: HEMATOCRIT. 20.7 % (36.0-48.0)
[2018-11-10 21:02] LABS: VITAMIN B12 SERUM 1182 pg/mL (211-911)
[2018-11-10 21:05] LABS: FERRITIN 61 ng/mL (10-291)
[2018-11-10 21:14] LABS: PLATELET ESTIMATE INCREASED
[2018-11-10 21:23] LABS: FOLIC ACID (FOLATE) SERUM > 20.00 ng/mL (>5.38)
[2018-11-11] VITALS (95 sets, daily range): BP systolic 100–163; BP diastolic 36–116
[2018-11-11] MEDS: BLOOD SUGAR DIAGNOSTIC STRIP TEST SCH ×4 (00:45→16:58)
[2018-11-11] MEDS: INSULIN LISPRO 100 UNITS/ML SUBCUT SCH ×4 (00:52→16:58)
[2018-11-11] MEDS: SODIUM CHLORIDE 0.45% 1,000 ML IV SCH (04:46)
[2018-11-11 05:43] LABS: BASOPHILS % 0.4 % (0.0-2.0); EOSINOPHILS % 4.4 % (0.0-5.0); HEMATOCRIT. 30.2 % (36.0-48.0); HEMOGLOBIN. 9.5 g/dL (12.0-16.0); LYMPHOCYTES % 11.7 % (20.0-50.0); MEAN CORPUSCULAR HEMOGLOBIN 25.3 pg (28.0-32.0); MEAN CORPUSCULAR VOLUME 80.9 fL (81.0-99.0); MEAN PLATELET VOLUME 10.2 fl (7.4-10.4); NEUTROPHILS % 77.5 % (40.0-76.0); PLATELET 468 x1000/uL (130-400); RED BLOOD CELL COUNT 3.74 mill/uL (4.2-5.4)
[2018-11-11 05:52] LABS: INR 1.1; PROTHROMBIN TIME 11.4 sec (9.6-11.0)
[2018-11-11 06:03] LABS: CHLORIDE 130 mEq/L (98-107)
[2018-11-11 06:19] LABS: PHOSPHORUS 4.7 mg/dL (2.5-4.9)
[2018-11-11] MEDS: RISPERIDONE 0.5MG TABLET PO SCH ×2 (07:48→21:00)
[2018-11-11] MEDS: DOCUSATE SODIUM SUGAR FREE 100MG/10ML UDC NG SCH (07:48)
[2018-11-11] MEDS ORDERED: METOCLOPRAMIDE HCL 10MG/2ML VIAL IV NR ×3 (08:00→11:00)
[2018-11-11] MEDS: DEXTROSE 5% WATER 1,000 ML IV SCH ×2 (08:35→21:33)
[2018-11-11] MEDS: PANTOPRAZOLE SODIUM 40 MG/VIAL IV SCH ×2 (08:35→21:33)
[2018-11-11 12:44] LABS: HEMATOCRIT 27.1 % (36.0-48.0); HEMOGLOBIN 8.5 g/dL (12.0-16.0)
[2018-11-11] MEDS ORDERED: DIPHENHYDRAMINE 50MG/ML VIAL ONE (12:54)
[2018-11-11] MEDS ORDERED: MIDAZOLAM HCL 5 MG/5 ML VIAL ONE (12:55)
[2018-11-11] MEDS ORDERED: FENTANYL CITRATE/PF 50MCG/ML 2ML VIAL ONE (12:55)
[2018-11-11] MEDS: ONDANSETRON HCL 4MG/2ML INJ IV PRN (13:16)
[2018-11-11] MEDS ORDERED: BACTERIOSTATIC SODIUM CHLORIDE 0.9% 30ML VIAL IJ ONE (13:37)
[2018-11-11] MEDS ORDERED: SIMETHICONE 40 MG/0.6 ML 30ML ONE (13:38)
[2018-11-11] MEDS ORDERED: FENTANYL CITRATE/PF 50MCG/ML 2ML VIAL IV PRN (14:10)
[2018-11-11] MEDS ORDERED: MIDAZOLAM HCL 5 MG/5 ML VIAL IV PRN (14:11)
[2018-11-11 18:58] LABS: HEMATOCRIT 29.9 % (36.0-48.0); HEMOGLOBIN 9.2 g/dL (12.0-16.0)
[2018-11-11 21:31] LABS: HEMATOCRIT 27.7 % (36.0-48.0); HEMOGLOBIN 8.8 g/dL (12.0-16.0); MEAN CORPUSCULAR HEMOGLOBIN 25.6 pg (28.0-32.0); MEAN CORPUSCULAR VOLUME 81.2 fL (81.0-99.0); PLATELET 587 x1000/uL (130-400); RED BLOOD CELL COUNT 3.42 mill/uL (4.2-5.4); RED CELL DISTRIBUTION WIDTH 24.9 % (11.6-14.6)
[2018-11-11 21:48] LABS: CHLORIDE 130 mEq/L (98-107)
[2018-11-11] MEDS: LORAZEPAM 2MG/ML CPJ IV PRN (23:13)
[2018-11-11 23:53] LABS: HEMOGLOBIN 8.9 g/dL (12.0-16.0)
[2018-11-12] VITALS (73 sets, daily range): BP systolic 88–122; BP diastolic 34–86
[2018-11-12] MEDS: BLOOD SUGAR DIAGNOSTIC STRIP TEST SCH ×5 (00:40→23:06)
[2018-11-12] MEDS: ACETAMINOPHEN 325MG TABLET PO PRN ×2 (05:39→21:32)
[2018-11-12] MEDS: INSULIN LISPRO 100 UNITS/ML SUBCUT SCH ×4 (05:39→17:31)
[2018-11-12 06:02] LABS: HEMOGLOBIN. 7.7 g/dL (12.0-16.0); MEAN CORPUSCULAR HEMOGLOBIN 25.3 pg (28.0-32.0); MEAN CORPUSCULAR VOLUME 81.7 fL (81.0-99.0); PLATELET 578 x1000/uL (130-400); RED BLOOD CELL COUNT 3.05 mill/uL (4.2-5.4); RED CELL DISTRIBUTION WIDTH 25.7 % (11.6-14.6)
[2018-11-12 06:22] LABS: CHLORIDE 126 mEq/L (98-107)
[2018-11-12 06:26] LABS: INR 1.1; PROTHROMBIN TIME 11.4 sec (9.6-11.0)
[2018-11-12 06:28] LABS: PHOSPHORUS 3.7 mg/dL (2.5-4.9)
[2018-11-12 07:14] LABS: NUCLEATED RED BLOOD CELLS 1 /100 WBC; PLATELET ESTIMATE INCREASED
[2018-11-12] MEDS: RISPERIDONE 0.5MG TABLET PO SCH ×2 (08:26→22:47)
[2018-11-12] MEDS: DOCUSATE SODIUM SUGAR FREE 100MG/10ML UDC NG SCH (08:26)
[2018-11-12] MEDS: PANTOPRAZOLE SODIUM 40 MG/VIAL IV SCH ×2 (08:30→21:31)
[2018-11-12] MEDS: DEXTROSE 5% WATER 1,000 ML IV SCH ×3 (09:49→21:32)
[2018-11-12] MEDS: ONDANSETRON HCL 4MG/2ML INJ IV PRN (12:21)
[2018-11-12 13:35] LABS: BG BASE EXCESS -1.3 mmol/L (-2.0-2.0); BG CARBOXYHEMOGLOBIN 0.3 % (0.5-1.5); BG DEOXYHEMOGLOBIN 8.4 % (0.0-5.0); BG FRACTION INSPIRED OXYGEN 50; BG HCO3 ACT 26.6 mmol/L (22.0-26.0); BG METHEMOGLOBIN 1.1 % (0.0-1.5); BG OXYGEN SATURATION 91.5 % (92.0-98.5); BG OXYHEMOGLOBIN 90.2 % (94.0-97.0); BG PCO2 62.2 mmHg (35.0-45.0); BG PH 7.249 (7.350-7.450); BG PO2 68.6 mmHg (75.0-100.0); BG SAMPLE SITE RIGHT RADIAL; BG TOTAL HEMOGLOBIN 9.8 g/dL (12.0-18.0); BG VENT MODE MASK - SIMPLE
[2018-11-12] MEDS: VANCOMYCIN 1250MG in DEXTROSE 5% WATER 250ML IV SCH (13:46)
[2018-11-12] MEDS: PIPERACILLIN/TAZ 3.375G PREMIX 50 ML IV SCH ×2 (14:15→21:32)
[2018-11-12] MEDS ORDERED: LACTULOSE 20G/30ML UDC PO SCH ×2 (17:30→20:00)
[2018-11-12] MEDS ORDERED: POTASSIUM CHLORIDE 20MEQ/PACKET GT NR (17:30)
[2018-11-12] MEDS: METOCLOPRAMIDE HCL 10MG/2ML VIAL IV SCH ×2 (17:32→23:06)
[2018-11-12 17:36] LABS: HEMATOCRIT 28.6 % (36.0-48.0); HEMOGLOBIN 8.9 g/dL (12.0-16.0)
[2018-11-12 20:41] LABS: HEPATITIS B SURFACE ANTIGEN NEGATIVE
[2018-11-12 21:11] LABS: HEPATITIS A AB IGM NEGATIVE (NEGATIVE)
[2018-11-12] MEDS: IPRATROPIUM/ALBUTEROL 0.5-3(2.5)MG/3ML NEB HHN PRN (21:12)
[2018-11-12] MEDS: RIFAXIMIN 550 MG TABLET GT SCH (21:32)
[2018-11-13] VITALS (71 sets, daily range): BP systolic 91–119; BP diastolic 41–98
[2018-11-13] MEDS: PIPERACILLIN/TAZ 3.375G PREMIX 50 ML IV SCH ×4 (03:23→21:52)
[2018-11-13] MEDS: METOCLOPRAMIDE HCL 10MG/2ML VIAL IV SCH ×3 (05:42→18:53)
[2018-11-13] MEDS: BLOOD SUGAR DIAGNOSTIC STRIP TEST SCH ×3 (05:43→18:00)
[2018-11-13] MEDS: DEXTROSE 5% WATER 1,000 ML IV SCH ×2 (05:43→14:14)
[2018-11-13] MEDS: INSULIN LISPRO 100 UNITS/ML SUBCUT SCH ×3 (06:00→13:27)
[2018-11-13 06:09] LABS: CHLORIDE 124 mEq/L (98-107)
[2018-11-13 06:15] LABS: PHOSPHORUS 3.3 mg/dL (2.5-4.9)
[2018-11-13 07:43] LABS: HEMATOCRIT. 25.8 % (36.0-48.0); HEMOGLOBIN. 8.1 g/dL (12.0-16.0); MEAN CORPUSCULAR HEMOGLOBIN 26.1 pg (28.0-32.0); MEAN CORPUSCULAR VOLUME 83.3 fL (81.0-99.0); MEAN PLATELET VOLUME 9.4 fl (7.4-10.4); PLATELET 601 x1000/uL (130-400); RED CELL DISTRIBUTION WIDTH 24.5 % (11.6-14.6)
[2018-11-13 08:04] LABS: PLATELET ESTIMATE INCREASED
[2018-11-13] MEDS: VANCOMYCIN 1250MG in DEXTROSE 5% WATER 250ML IV SCH (08:35)
[2018-11-13] MEDS: DOCUSATE SODIUM SUGAR FREE 100MG/10ML UDC NG SCH (08:36)
[2018-11-13] MEDS: PANTOPRAZOLE SODIUM 40 MG/VIAL IV SCH ×2 (08:36→21:52)
[2018-11-13] MEDS: RIFAXIMIN 550 MG TABLET GT SCH ×2 (08:36→21:52)
[2018-11-13] MEDS: RISPERIDONE 0.5MG TABLET PO SCH (08:36)
[2018-11-13 08:53] LABS: BG BASE EXCESS -0.3 mmol/L (-2.0-2.0); BG BILEVEL POS AIRWAY PRESSURE ST=15/5; BG CARBOXYHEMOGLOBIN 0.6 % (0.5-1.5); BG DEOXYHEMOGLOBIN 2.5 % (0.0-5.0); BG FRACTION INSPIRED OXYGEN 40; BG HCO3 ACT 27.3 mmol/L (22.0-26.0); BG METHEMOGLOBIN 0.6 % (0.0-1.5); BG OXYGEN SATURATION 97.5 % (92.0-98.5); BG OXYHEMOGLOBIN 96.3 % (94.0-97.0); BG PCO2 62.2 mmHg (35.0-45.0); BG PO2 108.9 mmHg (75.0-100.0); BG PRESSURE SUPPORT 10; BG SAMPLE SITE LEFT RADIAL; BG TOTAL HEMOGLOBIN 8.6 g/dL (12.0-18.0); BG VENT MODE MASK - BIPAP; BG VENT RATE 18 set
[2018-11-13] MEDS: IPRATROPIUM/ALBUTEROL 0.5-3(2.5)MG/3ML NEB HHN PRN ×4 (08:56→20:20)
[2018-11-13] MEDS ORDERED: VECURONIUM BROMIDE 10 MG/VIAL IV ONE (09:57)
[2018-11-13] MEDS ORDERED: SODIUM CHLORIDE 0.9% 10ML VIAL ONE (09:57)
[2018-11-13] MEDS ORDERED: ETOMIDATE 2MG/ML 10ML VIAL IV ONE (09:57)
[2018-11-13 10:29] LABS: BG FRACTION INSPIRED OXYGEN 60; BG PH 7.286 (7.350-7.450); BG SAMPLE SITE RIGHT RADIAL; BG TIDAL VOLUME(mL) 500 mL; BG VENT MODE VENT - A/C; BG VENT RATE 16 set
[2018-11-13 10:30] LABS: BG BASE EXCESS -0.7 mmol/L (-2.0-2.0); BG CARBOXYHEMOGLOBIN 0.1 % (0.5-1.5); BG DEOXYHEMOGLOBIN 6.1 % (0.0-5.0); BG HCO3 ACT 26.2 mmol/L (22.0-26.0); BG METHEMOGLOBIN 0.3 % (0.0-1.5); BG OXYGEN SATURATION 93.9 % (92.0-98.5); BG OXYHEMOGLOBIN 93.5 % (94.0-97.0); BG PCO2 56.2 mmHg (35.0-45.0); BG TOTAL HEMOGLOBIN 8.2 g/dL (12.0-18.0)
[2018-11-13] MEDS: LORAZEPAM 2MG/ML CPJ IV PRN (11:44)
[2018-11-13] MEDS: PROPOFOL 10MG/ML 100ML 100 ML IV PRN (13:24)
[2018-11-13] MEDS: LACTULOSE 20G/30ML UDC PO SCH ×2 (14:19→21:52)
[2018-11-14] VITALS (88 sets, daily range): BP systolic 80–129; BP diastolic 30–69
[2018-11-14] MEDS: BLOOD SUGAR DIAGNOSTIC STRIP TEST SCH ×4 (00:09→18:00)
[2018-11-14] MEDS: METOCLOPRAMIDE HCL 10MG/2ML VIAL IV SCH ×4 (00:36→17:44)
[2018-11-14] MEDS: PROPOFOL 10MG/ML 100ML 100 ML IV PRN ×2 (00:43→07:37)
[2018-11-14] MEDS: IPRATROPIUM/ALBUTEROL 0.5-3(2.5)MG/3ML NEB HHN PRN ×2 (01:49→08:33)
[2018-11-14] MEDS: VANCOMYCIN 1250MG in DEXTROSE 5% WATER 250ML IV SCH ×3 (02:08→15:14)
[2018-11-14] MEDS: PIPERACILLIN/TAZ 3.375G PREMIX 50 ML IV SCH ×4 (02:08→22:07)
[2018-11-14] MEDS: DEXTROSE 5% WATER 1,000 ML IV SCH ×2 (02:09→07:30)
[2018-11-14 04:16] LABS: HEMATOCRIT. 22.9 % (36.0-48.0); HEMOGLOBIN. 7.2 g/dL (12.0-16.0); MEAN CORPUSCULAR HEMOGLOBIN 26.1 pg (28.0-32.0); MEAN CORPUSCULAR VOLUME 83.1 fL (81.0-99.0); MEAN PLATELET VOLUME 9.6 fl (7.4-10.4); PLATELET 536 x1000/uL (130-400); RED BLOOD CELL COUNT 2.76 mill/uL (4.2-5.4); RED CELL DISTRIBUTION WIDTH 25.2 % (11.6-14.6)
[2018-11-14 04:30] LABS: CHLORIDE 115 mEq/L (98-107)
[2018-11-14 04:44] LABS: PLATELET ESTIMATE INCREASED
[2018-11-14] MEDS: INSULIN LISPRO 100 UNITS/ML SUBCUT SCH ×4 (06:00→18:00)
[2018-11-14] MEDS: LACTULOSE 20G/30ML UDC PO SCH ×3 (06:47→22:08)
[2018-11-14] MEDS: PANTOPRAZOLE SODIUM 40 MG/VIAL IV SCH ×2 (08:58→22:07)
[2018-11-14] MEDS: RIFAXIMIN 550 MG TABLET GT SCH ×2 (08:58→22:08)
[2018-11-14] MEDS: KCL 20MEQ/100ML PREMIX 100 ML IV SCH ×4 (08:58→12:00)
[2018-11-14] MEDS: DOCUSATE SODIUM SUGAR FREE 100MG/10ML UDC NG SCH (09:00)
[2018-11-14 10:01] LABS: BG BASE EXCESS -3.6 mmol/L (-2.0-2.0); BG CARBOXYHEMOGLOBIN 0.3 % (0.5-1.5); BG DEOXYHEMOGLOBIN 3.1 % (0.0-5.0); BG FRACTION INSPIRED OXYGEN 60; BG HCO3 ACT 23.2 mmol/L (22.0-26.0); BG METHEMOGLOBIN 0.5 % (0.0-1.5); BG OXYGEN SATURATION 96.9 % (92.0-98.5); BG OXYHEMOGLOBIN 96.1 % (94.0-97.0); BG PCO2 50.4 mmHg (35.0-45.0); BG PO2 101.8 mmHg (75.0-100.0); BG SAMPLE SITE LEFT RADIAL; BG TIDAL VOLUME(mL) 500 mL; BG TOTAL HEMOGLOBIN 8.7 g/dL (12.0-18.0); BG VENT MODE VENT - A/C; BG VENT RATE 16 set
[2018-11-14] MEDS ORDERED: IPRATROPIUM/ALBUTEROL 0.5-3(2.5)MG/3ML NEB HHN PRN (10:15)
[2018-11-14] MEDS ORDERED: POTASSIUM CHLORIDE 20MEQ/PACKET PO NR (10:15)
[2018-11-14] MEDS ORDERED: MAGNESIUM 1 G PREMIX 100 ML IV SCH (12:30)
[2018-11-14] MEDS: IPRATROPIUM/ALBUTEROL 0.5-3(2.5)MG/3ML NEB HHN SCH ×3 (12:39→20:37)
[2018-11-14] MEDS: POTASSIUM CHLORIDE INJ 30 MEQ in DEXTROSE 5% WATER 1,000 ML IV SCH (15:27)
[2018-11-15] VITALS (105 sets, daily range): BP systolic 62–143; BP diastolic 26–102
[2018-11-15] MEDS: BLOOD SUGAR DIAGNOSTIC STRIP TEST SCH ×4 (00:29→17:11)
[2018-11-15] MEDS: METOCLOPRAMIDE HCL 10MG/2ML VIAL IV SCH ×5 (00:36→23:44)
[2018-11-15] MEDS: IPRATROPIUM/ALBUTEROL 0.5-3(2.5)MG/3ML NEB HHN SCH ×6 (00:41→19:51)
[2018-11-15] MEDS: POTASSIUM CHLORIDE INJ 30 MEQ in DEXTROSE 5% WATER 1,000 ML IV SCH ×2 (02:30→08:31)
[2018-11-15] MEDS: PIPERACILLIN/TAZ 3.375G PREMIX 50 ML IV SCH ×4 (02:30→21:06)
[2018-11-15] MEDS: PROPOFOL 10MG/ML 100ML 100 ML IV PRN ×5 (03:36→21:05)
[2018-11-15 05:39] LABS: BASOPHILS % 0.7 % (0.0-2.0); EOSINOPHILS % 7.9 % (0.0-5.0); HEMATOCRIT. 27.3 % (36.0-48.0); HEMOGLOBIN. 8.9 g/dL (12.0-16.0); LYMPHOCYTES % 9.1 % (20.0-50.0); MEAN CORPUSCULAR HEMOGLOBIN 26.7 pg (28.0-32.0); MEAN CORPUSCULAR VOLUME 81.8 fL (81.0-99.0); MEAN PLATELET VOLUME 9.6 fl (7.4-10.4); MONOCYTES % 7.6 % (2.0-8.0); NEUTROPHILS % 74.7 % (40.0-76.0); PLATELET 517 x1000/uL (130-400); RED BLOOD CELL COUNT 3.34 mill/uL (4.2-5.4); RED CELL DISTRIBUTION WIDTH 24.8 % (11.6-14.6)
[2018-11-15 05:45] LABS: CHLORIDE 114 mEq/L (98-107)
[2018-11-15 05:50] LABS: PHOSPHORUS 3.5 mg/dL (2.5-4.9)
[2018-11-15] MEDS: INSULIN LISPRO 100 UNITS/ML SUBCUT SCH ×4 (06:00→17:11)
[2018-11-15] MEDS: NOREPINEPHRINE 16 MG in DEXT 5% WATER 234 ML IV PRN (06:11)
[2018-11-15] MEDS: LACTULOSE 20G/30ML UDC PO SCH ×3 (06:41→21:42)
[2018-11-15] MEDS: VANCOMYCIN 1 G PREMIX 200 ML IV SCH ×2 (08:31→21:06)
[2018-11-15] MEDS: DOCUSATE SODIUM SUGAR FREE 100MG/10ML UDC NG SCH (08:31)
[2018-11-15] MEDS: PANTOPRAZOLE SODIUM 40 MG/VIAL IV SCH ×2 (08:32→21:06)
[2018-11-15] MEDS: RIFAXIMIN 550 MG TABLET GT SCH ×2 (08:32→21:06)
[2018-11-15 09:05] LABS: BG BASE EXCESS -3.6 mmol/L (-2.0-2.0); BG CARBOXYHEMOGLOBIN 0.3 % (0.5-1.5); BG DEOXYHEMOGLOBIN 3.5 % (0.0-5.0); BG FRACTION INSPIRED OXYGEN 50; BG HCO3 ACT 22.5 mmol/L (22.0-26.0); BG METHEMOGLOBIN 0.4 % (0.0-1.5); BG OXYGEN SATURATION 96.5 % (92.0-98.5); BG OXYHEMOGLOBIN 95.8 % (94.0-97.0); BG PCO2 45.2 mmHg (35.0-45.0); BG PH 7.315 (7.350-7.450); BG PO2 95.4 mmHg (75.0-100.0); BG SAMPLE SITE RIGHT RADIAL; BG TIDAL VOLUME(mL) 550 mL; BG TOTAL HEMOGLOBIN 10.9 g/dL (12.0-18.0); BG VENT MODE VENT - A/C; BG VENT RATE 18 set
[2018-11-15] MEDS ORDERED: KCL 20MEQ/100ML PREMIX 100 ML IV NR (11:00)
[2018-11-15] MEDS ORDERED: MAGNESIUM 2 G PREMIX 50 ML IV NR (11:30)
[2018-11-15 12:43] LABS: CHLORIDE 118 mEq/L (98-107)
[2018-11-16] VITALS (87 sets, daily range): BP systolic 84–141; BP diastolic 34–105
[2018-11-16] MEDS: POTASSIUM CHLORIDE INJ 30 MEQ in DEXTROSE 5% WATER 1,000 ML IV SCH ×3 (00:14→17:33)
[2018-11-16] MEDS: NOREPINEPHRINE 16 MG in DEXT 5% WATER 234 ML IV PRN (00:48)
[2018-11-16] MEDS: BLOOD SUGAR DIAGNOSTIC STRIP TEST SCH ×5 (00:49→23:55)
[2018-11-16] MEDS: PROPOFOL 10MG/ML 100ML 100 ML IV PRN ×7 (00:49→23:39)
[2018-11-16] MEDS: PIPERACILLIN/TAZ 3.375G PREMIX 50 ML IV SCH ×4 (02:56→21:29)
[2018-11-16] MEDS: IPRATROPIUM/ALBUTEROL 0.5-3(2.5)MG/3ML NEB HHN SCH ×6 (04:09→20:37)
[2018-11-16 05:30] LABS: BASOPHILS % 1.1 % (0.0-2.0); EOSINOPHILS % 7.2 % (0.0-5.0); HEMATOCRIT. 28.6 % (36.0-48.0); HEMOGLOBIN. 9.4 g/dL (12.0-16.0); LYMPHOCYTES % 9.5 % (20.0-50.0); MEAN CORPUSCULAR HEMOGLOBIN 26.6 pg (28.0-32.0); MEAN CORPUSCULAR VOLUME 81.1 fL (81.0-99.0); MEAN PLATELET VOLUME 9.3 fl (7.4-10.4); MONOCYTES % 8.5 % (2.0-8.0); NEUTROPHILS % 73.7 % (40.0-76.0); PLATELET 656 x1000/uL (130-400); RED BLOOD CELL COUNT 3.53 mill/uL (4.2-5.4); RED CELL DISTRIBUTION WIDTH 25.5 % (11.6-14.6)
[2018-11-16 05:36] LABS: CHLORIDE 119 mEq/L (98-107)
[2018-11-16 05:47] LABS: PHOSPHORUS 4.4 mg/dL (2.5-4.9)
[2018-11-16] MEDS: LACTULOSE 20G/30ML UDC PO SCH ×3 (05:59→21:29)
[2018-11-16] MEDS: INSULIN LISPRO 100 UNITS/ML SUBCUT SCH ×5 (05:59→23:59)
[2018-11-16] MEDS: METOCLOPRAMIDE HCL 10MG/2ML VIAL IV SCH ×4 (05:59→23:39)
[2018-11-16] MEDS: DOCUSATE SODIUM SUGAR FREE 100MG/10ML UDC NG SCH (08:09)
[2018-11-16] MEDS: PANTOPRAZOLE SODIUM 40 MG/VIAL IV SCH ×2 (08:09→21:30)
[2018-11-16] MEDS: RIFAXIMIN 550 MG TABLET GT SCH ×2 (08:09→21:30)
[2018-11-16] MEDS: VANCOMYCIN 1 G PREMIX 200 ML IV SCH ×2 (08:09→21:29)
[2018-11-16 08:30] LABS: BG BASE EXCESS -2.7 mmol/L (-2.0-2.0); BG CARBOXYHEMOGLOBIN 0.3 % (0.5-1.5); BG DEOXYHEMOGLOBIN 5.6 % (0.0-5.0); BG FRACTION INSPIRED OXYGEN 40; BG HCO3 ACT 22.8 mmol/L (22.0-26.0); BG METHEMOGLOBIN 0.4 % (0.0-1.5); BG OXYGEN SATURATION 94.4 % (92.0-98.5); BG OXYHEMOGLOBIN 93.7 % (94.0-97.0); BG PCO2 42.4 mmHg (35.0-45.0); BG PH 7.349 (7.350-7.450); BG PO2 76.7 mmHg (75.0-100.0); BG SAMPLE SITE RIGHT RADIAL; BG TIDAL VOLUME(mL) 550 mL; BG TOTAL HEMOGLOBIN 10.3 g/dL (12.0-18.0); BG VENT MODE VENT - A/C; BG VENT RATE 18 set
[2018-11-16] MEDS ORDERED: KCL 20MEQ/100ML PREMIX 100 ML IV SCH (10:30)
[2018-11-16] MEDS ORDERED: DILTIAZEM HCL 5MG/ML 5ML VIAL IV PRN (17:00)
[2018-11-17] VITALS (59 sets, daily range): BP systolic 66–120; BP diastolic 17–78
[2018-11-17] MEDS: IPRATROPIUM/ALBUTEROL 0.5-3(2.5)MG/3ML NEB HHN SCH ×6 (00:51→19:59)
[2018-11-17] MEDS: PIPERACILLIN/TAZ 3.375G PREMIX 50 ML IV SCH ×4 (02:34→21:39)
[2018-11-17] MEDS: POTASSIUM CHLORIDE INJ 30 MEQ in DEXTROSE 5% WATER 1,000 ML IV SCH ×3 (02:35→21:38)
[2018-11-17] MEDS: PROPOFOL 10MG/ML 100ML 100 ML IV PRN ×5 (02:51→20:38)
[2018-11-17 05:45] LABS: BASOPHILS % 0.6 % (0.0-2.0); HEMOGLOBIN. 9.5 g/dL (12.0-16.0); MEAN CORPUSCULAR HEMOGLOBIN 26.9 pg (28.0-32.0); MEAN CORPUSCULAR VOLUME 82.2 fL (81.0-99.0); MEAN PLATELET VOLUME 9.3 fl (7.4-10.4); MONOCYTES % 7.9 % (2.0-8.0); NEUTROPHILS % 76.5 % (40.0-76.0); PLATELET 581 x1000/uL (130-400); RED BLOOD CELL COUNT 3.53 mill/uL (4.2-5.4); RED CELL DISTRIBUTION WIDTH 25.3 % (11.6-14.6)
[2018-11-17 06:00] LABS: CHLORIDE 117 mEq/L (98-107)
[2018-11-17] MEDS: LACTULOSE 20G/30ML UDC PO SCH ×4 (06:00→21:38)
[2018-11-17] MEDS: INSULIN LISPRO 100 UNITS/ML SUBCUT SCH ×3 (06:00→16:45)
[2018-11-17] MEDS: METOCLOPRAMIDE HCL 10MG/2ML VIAL IV SCH ×3 (06:08→16:44)
[2018-11-17 06:11] LABS: PHOSPHORUS 5.1 mg/dL (2.5-4.9)
[2018-11-17] MEDS: BLOOD SUGAR DIAGNOSTIC STRIP TEST SCH ×3 (06:43→16:44)
[2018-11-17] MEDS: DOCUSATE SODIUM SUGAR FREE 100MG/10ML UDC NG SCH (08:22)
[2018-11-17] MEDS: PANTOPRAZOLE SODIUM 40 MG/VIAL IV SCH ×2 (08:35→21:38)
[2018-11-17] MEDS: RIFAXIMIN 550 MG TABLET GT SCH ×2 (08:35→21:39)
[2018-11-17] MEDS: VANCOMYCIN 1 G PREMIX 200 ML IV SCH (08:36)
[2018-11-17 08:45] LABS: BG BASE EXCESS -4.5 mmol/L (-2.0-2.0); BG CARBOXYHEMOGLOBIN 0.3 % (0.5-1.5); BG DEOXYHEMOGLOBIN 3.2 % (0.0-5.0); BG FRACTION INSPIRED OXYGEN 40; BG METHEMOGLOBIN 0.3 % (0.0-1.5); BG OXYGEN SATURATION 96.8 % (92.0-98.5); BG OXYHEMOGLOBIN 96.2 % (94.0-97.0); BG PCO2 40.2 mmHg (35.0-45.0); BG PH 7.335 (7.350-7.450); BG PO2 99.5 mmHg (75.0-100.0); BG SAMPLE SITE RIGHT RADIAL; BG TIDAL VOLUME(mL) 550 mL; BG TOTAL HEMOGLOBIN 9.9 g/dL (12.0-18.0); BG VENT MODE VENT - A/C; BG VENT RATE 18 set
[2018-11-17] MEDS ORDERED: FUROSEMIDE 40MG/4ML VIAL IVP SCH (14:00)
[2018-11-17] MEDS ORDERED: POTASSIUM CHLORIDE 20MEQ/PACKET PO NR (14:15)
[2018-11-17] MEDS: DIPHENHYDRAMINE 50MG/ML VIAL IV PRN (14:45)
[2018-11-17 19:29] LABS: CLARITY URINE CLEAR (CLEAR); COLOR URINE YELLOW (YELLOW); KETONES URINE NEGATIVE (NEGATIVE); LEUKOCYTE ESTERASE URINE TRACE (NEGATIVE); NITRITE URINE NEGATIVE (NEGATIVE); OCCULT BLOOD URINE NEGATIVE (NEGATIVE); PROTEIN URINE NEGATIVE (NEGATIVE); SPECIFIC GRAVITY URINE 1.009 (1.005-1.030); UROBILINOGEN URINE 0.2 E.U./dL (0.2-1.0)
[2018-11-18] VITALS (48 sets, daily range): BP systolic 64–138; BP diastolic 35–84
[2018-11-18] MEDS: IPRATROPIUM/ALBUTEROL 0.5-3(2.5)MG/3ML NEB HHN SCH ×6 (00:22→20:34)
[2018-11-18] MEDS: BLOOD SUGAR DIAGNOSTIC STRIP TEST SCH ×4 (00:34→17:52)
[2018-11-18] MEDS: VANCOMYCIN 1 G PREMIX 200 ML IV SCH ×2 (00:47→17:52)
[2018-11-18] MEDS: METOCLOPRAMIDE HCL 10MG/2ML VIAL IV SCH ×4 (00:47→17:52)
[2018-11-18] MEDS: PROPOFOL 10MG/ML 100ML 100 ML IV PRN ×4 (01:10→15:48)
[2018-11-18] MEDS: PIPERACILLIN/TAZ 3.375G PREMIX 50 ML IV SCH ×4 (03:06→20:52)
[2018-11-18] MEDS ORDERED: LIDOCAINE HCL/PF 1% 2ML VIAL ONE (05:00)
[2018-11-18 05:21] LABS: HEMOGLOBIN. 9.8 g/dL (12.0-16.0); MEAN CORPUSCULAR HEMOGLOBIN 26.7 pg (28.0-32.0); MEAN CORPUSCULAR VOLUME 81.7 fL (81.0-99.0); MEAN PLATELET VOLUME 9.4 fl (7.4-10.4); PLATELET 548 x1000/uL (130-400); RED BLOOD CELL COUNT 3.67 mill/uL (4.2-5.4); RED CELL DISTRIBUTION WIDTH 25.2 % (11.6-14.6)
[2018-11-18 05:38] LABS: CHLORIDE 112 mEq/L (98-107)
[2018-11-18 05:49] LABS: PHOSPHORUS 5.2 mg/dL (2.5-4.9)
[2018-11-18] MEDS: INSULIN LISPRO 100 UNITS/ML SUBCUT SCH ×4 (06:00→17:52)
[2018-11-18] MEDS: LACTULOSE 20G/30ML UDC PO SCH ×2 (06:00→17:00)
[2018-11-18 06:32] LABS: PLATELET ESTIMATE INCREASED
[2018-11-18 07:17] LABS: BG BASE EXCESS -4.1 mmol/L (-2.0-2.0); BG CARBOXYHEMOGLOBIN 0.2 % (0.5-1.5); BG DEOXYHEMOGLOBIN 4.9 % (0.0-5.0); BG HCO3 ACT 20.8 mmol/L (22.0-26.0); BG METHEMOGLOBIN 0.1 % (0.0-1.5); BG OXYGEN SATURATION 95.1 % (92.0-98.5); BG OXYHEMOGLOBIN 94.8 % (94.0-97.0); BG PCO2 36.9 mmHg (35.0-45.0); BG PH 7.369 (7.350-7.450); BG PO2 78.2 mmHg (75.0-100.0); BG SAMPLE SITE RIGHT RADIAL; BG TIDAL VOLUME(mL) 550 mL; BG TOTAL HEMOGLOBIN 7.9 g/dL (12.0-18.0); BG VENT MODE VENT - A/C; BG VENT RATE 18 set
[2018-11-18] MEDS: DOCUSATE SODIUM SUGAR FREE 100MG/10ML UDC NG SCH (08:51)
[2018-11-18] MEDS: PANTOPRAZOLE SODIUM 40 MG/VIAL IV SCH ×2 (08:51→20:52)
[2018-11-18] MEDS: RIFAXIMIN 550 MG TABLET GT SCH (08:52)
[2018-11-18] MEDS: POTASSIUM CHLORIDE 20MEQ/PACKET PO SCH (08:52)
[2018-11-18] MEDS ORDERED: POTASSIUM CHLORIDE 20MEQ TABLET SR PO SCH (09:00)
[2018-11-18] MEDS ORDERED: MAGNESIUM 2 G PREMIX 50 ML IV NR (13:00)
[2018-11-18] MEDS ORDERED: KCL 20MEQ/100ML PREMIX 100 ML IV NR (16:00)
[2018-11-18] MEDS ORDERED: ROCURONIUM BROMIDE 10MG/ML VIAL 5ML IV ONE (18:31)
[2018-11-18] MEDS ORDERED: MIDAZOLAM HCL 2 MG/2 ML VIAL ONE (18:52)
[2018-11-18] MEDS ORDERED: CEFAZOLIN SODIUM 1000MG/VIAL ONE (18:56)
[2018-11-18] MEDS ORDERED: SODIUM CHLORIDE 0.9% 10ML VIAL ONE (18:56)
[2018-11-18] MEDS: POTASSIUM CHLORIDE INJ 30 MEQ in DEXTROSE 5% WATER 1,000 ML IV SCH (20:52)
[2018-11-18] MEDS: MORPHINE SULFATE 4 MG/ML CPJ (NOT FOR IM USE) IV PRN (21:01)
[2018-11-18] MEDS: LORAZEPAM 2MG/ML CPJ IV PRN (21:30)
[2018-11-18] MEDS ORDERED: KCL 20MEQ/100ML PREMIX 100 ML IV SCH (22:45)
[2018-11-19] VITALS (38 sets, daily range): BP systolic 76–125; BP diastolic 39–92
[2018-11-19] MEDS: IPRATROPIUM/ALBUTEROL 0.5-3(2.5)MG/3ML NEB HHN SCH ×6 (00:30→20:15)
[2018-11-19] MEDS: BLOOD SUGAR DIAGNOSTIC STRIP TEST SCH ×4 (00:52→17:07)
[2018-11-19] MEDS: METOCLOPRAMIDE HCL 10MG/2ML VIAL IV SCH ×4 (00:53→17:11)
[2018-11-19] MEDS: PIPERACILLIN/TAZ 3.375G PREMIX 50 ML IV SCH ×4 (03:35→21:50)
[2018-11-19] MEDS: LORAZEPAM 2MG/ML CPJ IV PRN ×2 (04:48→16:23)
[2018-11-19] MEDS: MORPHINE SULFATE 4 MG/ML CPJ (NOT FOR IM USE) IV PRN (04:49)
[2018-11-19 05:56] LABS: HEMATOCRIT. 31.3 % (36.0-48.0); HEMOGLOBIN. 9.8 g/dL (12.0-16.0); MEAN CORPUSCULAR HEMOGLOBIN 26.2 pg (28.0-32.0); MEAN CORPUSCULAR VOLUME 83.5 fL (81.0-99.0); MEAN PLATELET VOLUME 9.3 fl (7.4-10.4); RED BLOOD CELL COUNT 3.74 mill/uL (4.2-5.4); RED CELL DISTRIBUTION WIDTH 24.6 % (11.6-14.6)
[2018-11-19] MEDS: INSULIN LISPRO 100 UNITS/ML SUBCUT SCH ×4 (06:00→17:07)
[2018-11-19 06:38] LABS: CHLORIDE 114 mEq/L (98-107)
[2018-11-19 07:24] LABS: PLATELET ESTIMATE NORMAL
[2018-11-19 07:27] LABS: PLATELET 357 x1000/uL (130-400)
[2018-11-19 08:15] LABS: BG BASE EXCESS -2.2 mmol/L (-2.0-2.0); BG CARBOXYHEMOGLOBIN 0.3 % (0.5-1.5); BG DEOXYHEMOGLOBIN 3.7 % (0.0-5.0); BG FRACTION INSPIRED OXYGEN 40; BG HCO3 ACT 22.6 mmol/L (22.0-26.0); BG METHEMOGLOBIN 0.5 % (0.0-1.5); BG OXYGEN SATURATION 96.3 % (92.0-98.5); BG OXYHEMOGLOBIN 95.5 % (94.0-97.0); BG PCO2 38.6 mmHg (35.0-45.0); BG PH 7.385 (7.350-7.450); BG PO2 91.4 mmHg (75.0-100.0); BG SAMPLE SITE RIGHT RADIAL; BG TIDAL VOLUME(mL) 550 mL; BG TOTAL HEMOGLOBIN 9.7 g/dL (12.0-18.0); BG VENT MODE VENT - A/C; BG VENT RATE 18 set
[2018-11-19] MEDS: LACTULOSE 20G/30ML UDC PO SCH ×2 (09:00→17:11)
[2018-11-19] MEDS: POTASSIUM CHLORIDE 20MEQ/PACKET PO SCH (09:00)
[2018-11-19] MEDS: PANTOPRAZOLE SODIUM 40 MG/VIAL IV SCH ×2 (09:00→21:50)
[2018-11-19] MEDS: DOCUSATE SODIUM SUGAR FREE 100MG/10ML UDC NG SCH (09:01)
[2018-11-19] MEDS: POTASSIUM CHLORIDE INJ 30 MEQ in DEXTROSE 5% WATER 1,000 ML IV SCH ×2 (09:27→21:51)
[2018-11-19] MEDS: VANCOMYCIN 1 G PREMIX 200 ML IV SCH (11:30)
[2018-11-19 15:08] LABS: CLARITY URINE CLEAR (CLEAR); COLOR URINE YELLOW (YELLOW); KETONES URINE NEGATIVE (NEGATIVE); LEUKOCYTE ESTERASE URINE TRACE (NEGATIVE); NITRITE URINE NEGATIVE (NEGATIVE); OCCULT BLOOD URINE NEGATIVE (NEGATIVE); PH URINE 5.5 (4.5-8.0); PROTEIN URINE TRACE (NEGATIVE); SPECIFIC GRAVITY URINE 1.021 (1.005-1.030); UROBILINOGEN URINE 0.2 E.U./dL (0.2-1.0)
[2018-11-19] MEDS: ACETAMINOPHEN 325MG TABLET PO PRN (16:51)
[2018-11-20] VITALS (29 sets, daily range): BP systolic 98–138; BP diastolic 51–88
[2018-11-20] MEDS: IPRATROPIUM/ALBUTEROL 0.5-3(2.5)MG/3ML NEB HHN SCH ×6 (00:07→20:19)
[2018-11-20] MEDS: METOCLOPRAMIDE HCL 10MG/2ML VIAL IV SCH ×5 (00:19→23:13)
[2018-11-20] MEDS: BLOOD SUGAR DIAGNOSTIC STRIP TEST SCH ×5 (00:19→23:13)
[2018-11-20] MEDS: LORAZEPAM 2MG/ML CPJ IV PRN ×4 (00:19→18:20)
[2018-11-20] MEDS: MORPHINE SULFATE 4 MG/ML CPJ (NOT FOR IM USE) IV PRN (03:22)
[2018-11-20 04:22] LABS: EOSINOPHILS % 5.4 % (0.0-5.0); HEMATOCRIT. 27.2 % (36.0-48.0); HEMOGLOBIN. 8.8 g/dL (12.0-16.0); MEAN CORPUSCULAR HEMOGLOBIN 26.8 pg (28.0-32.0); MEAN CORPUSCULAR VOLUME 82.7 fL (81.0-99.0); MEAN PLATELET VOLUME 8.9 fl (7.4-10.4); MONOCYTES % 9.8 % (2.0-8.0); NEUTROPHILS % 75.8 % (40.0-76.0); PLATELET 488 x1000/uL (130-400); RED BLOOD CELL COUNT 3.29 mill/uL (4.2-5.4); RED CELL DISTRIBUTION WIDTH 22.8 % (11.6-14.6)
[2018-11-20 04:28] LABS: CHLORIDE 111 mEq/L (98-107)
[2018-11-20] MEDS: PIPERACILLIN/TAZ 3.375G PREMIX 50 ML IV SCH ×2 (04:30→08:42)
[2018-11-20] MEDS: INSULIN LISPRO 100 UNITS/ML SUBCUT SCH ×4 (06:00→18:00)
[2018-11-20] MEDS: VANCOMYCIN 1 G PREMIX 200 ML IV SCH (07:43)
[2018-11-20] MEDS: PANTOPRAZOLE SODIUM 40 MG/VIAL IV SCH ×2 (08:41→20:39)
[2018-11-20] MEDS: ENOXAPARIN 120MG/0.8ML SYR SUBCUT SCH ×2 (08:41→20:40)
[2018-11-20] MEDS: DOCUSATE SODIUM SUGAR FREE 100MG/10ML UDC NG SCH (08:42)
[2018-11-20] MEDS: LACTULOSE 20G/30ML UDC PO SCH ×2 (08:42→18:20)
[2018-11-20] MEDS: POTASSIUM CHLORIDE INJ 30 MEQ in DEXTROSE 5% WATER 1,000 ML IV SCH (13:04)
[2018-11-20] MEDS: CEFEPIME 1,000 MG in DEXTROSE 5% WATER 50 ML IV SCH ×2 (15:51→22:35)
[2018-11-20] MEDS: ACETAMINOPHEN 325MG TABLET PO PRN (20:39)
[2018-11-20] MEDS ORDERED: VANCOMYCIN 1250MG in DEXTROSE 5% WATER 250ML IV SCH (23:00)
[2018-11-21] VITALS (15 sets, daily range): BP systolic 115–133; BP diastolic 58–76
[2018-11-21] MEDS: IPRATROPIUM/ALBUTEROL 0.5-3(2.5)MG/3ML NEB HHN SCH ×6 (00:45→16:55)
[2018-11-21] MEDS: DIPHENHYDRAMINE 50MG/ML VIAL IV PRN (01:35)
[2018-11-21] MEDS: POTASSIUM CHLORIDE INJ 30 MEQ in DEXTROSE 5% WATER 1,000 ML IV SCH ×2 (01:43→12:57)
[2018-11-21] MEDS: BLOOD SUGAR DIAGNOSTIC STRIP TEST SCH ×2 (05:26→12:55)
[2018-11-21] MEDS: INSULIN LISPRO 100 UNITS/ML SUBCUT SCH ×3 (05:26→12:00)
[2018-11-21] MEDS: METOCLOPRAMIDE HCL 10MG/2ML VIAL IV SCH ×3 (05:27→17:33)
[2018-11-21] MEDS: LORAZEPAM 2MG/ML CPJ IV PRN ×4 (06:05→22:58)
[2018-11-21 07:00] LABS: BASOPHILS % 0.4 % (0.0-2.0); EOSINOPHILS % 3.7 % (0.0-5.0); HEMATOCRIT. 24.8 % (36.0-48.0); HEMOGLOBIN. 8.2 g/dL (12.0-16.0); LYMPHOCYTES % 10.5 % (20.0-50.0); MEAN CORPUSCULAR HEMOGLOBIN 27.1 pg (28.0-32.0); MEAN CORPUSCULAR VOLUME 82.1 fL (81.0-99.0); MEAN PLATELET VOLUME 8.9 fl (7.4-10.4); MONOCYTES % 9.2 % (2.0-8.0); NEUTROPHILS % 76.2 % (40.0-76.0); PLATELET 407 x1000/uL (130-400); RED BLOOD CELL COUNT 3.03 mill/uL (4.2-5.4); RED CELL DISTRIBUTION WIDTH 22.8 % (11.6-14.6)
[2018-11-21 07:18] LABS: CHLORIDE 109 mEq/L (98-107)
[2018-11-21] MEDS: DOCUSATE SODIUM SUGAR FREE 100MG/10ML UDC NG SCH (08:12)
[2018-11-21] MEDS: LACTULOSE 20G/30ML UDC PO SCH (08:12)
[2018-11-21] MEDS: PANTOPRAZOLE SODIUM 40 MG/VIAL IV SCH ×2 (08:13→22:32)
[2018-11-21] MEDS: ENOXAPARIN 120MG/0.8ML SYR SUBCUT SCH ×2 (08:13→22:31)
[2018-11-21] MEDS: CEFEPIME 1,000 MG in DEXTROSE 5% WATER 50 ML IV SCH ×2 (10:37→22:32)
[2018-11-21] MEDS: MORPHINE SULFATE 4 MG/ML CPJ (NOT FOR IM USE) IV PRN (15:31)
[2018-11-22] VITALS (16 sets, daily range): BP systolic 108–160; BP diastolic 53–108
[2018-11-22] MEDS: METOCLOPRAMIDE HCL 10MG/2ML VIAL IV SCH ×5 (00:41→21:38)
[2018-11-22] MEDS: DIPHENHYDRAMINE 50MG/ML VIAL IV PRN (00:41)
[2018-11-22] MEDS: IPRATROPIUM/ALBUTEROL 0.5-3(2.5)MG/3ML NEB HHN SCH ×6 (00:45→20:37)
[2018-11-22] MEDS: POTASSIUM CHLORIDE INJ 30 MEQ in DEXTROSE 5% WATER 1,000 ML IV SCH ×2 (02:35→16:59)
[2018-11-22 06:10] LABS: BASOPHILS % 0.3 % (0.0-2.0); EOSINOPHILS % 2.8 % (0.0-5.0); HEMATOCRIT. 26.7 % (36.0-48.0); HEMOGLOBIN. 8.4 g/dL (12.0-16.0); LYMPHOCYTES % 13.6 % (20.0-50.0); MEAN CORPUSCULAR HEMOGLOBIN 26.3 pg (28.0-32.0); MEAN CORPUSCULAR VOLUME 83.5 fL (81.0-99.0); MONOCYTES % 8.4 % (2.0-8.0); NEUTROPHILS % 74.9 % (40.0-76.0); RED BLOOD CELL COUNT 3.19 mill/uL (4.2-5.4); RED CELL DISTRIBUTION WIDTH 22.8 % (11.6-14.6)
[2018-11-22] MEDS: LORAZEPAM 2MG/ML CPJ IV PRN ×4 (06:15→21:42)
[2018-11-22] MEDS: MORPHINE SULFATE 4 MG/ML CPJ (NOT FOR IM USE) IV PRN ×2 (06:16→15:09)
[2018-11-22 06:42] LABS: CHLORIDE 108 mEq/L (98-107)
[2018-11-22] MEDS: PANTOPRAZOLE SODIUM 40 MG/VIAL IV SCH ×2 (08:35→21:37)
[2018-11-22] MEDS: ENOXAPARIN 120MG/0.8ML SYR SUBCUT SCH ×2 (08:35→21:37)
[2018-11-22] MEDS: DOCUSATE SODIUM SUGAR FREE 100MG/10ML UDC NG SCH (08:35)
[2018-11-22 11:17] LABS: PLATELET ESTIMATE NORMAL
[2018-11-22 14:12] LABS: BG BASE EXCESS 1.5 mmol/L (-2.0-2.0); BG CARBOXYHEMOGLOBIN 0.1 % (0.5-1.5); BG DEOXYHEMOGLOBIN 6.7 % (0.0-5.0); BG METHEMOGLOBIN 0.2 % (0.0-1.5); BG OXYGEN SATURATION 93.3 % (92.0-98.5); BG PCO2 40.6 mmHg (35.0-45.0); BG PH 7.424 (7.350-7.450); BG PO2 68.8 mmHg (75.0-100.0); BG SAMPLE SITE RIGHT RADIAL; BG TIDAL VOLUME(mL) 550 mL; BG TOTAL HEMOGLOBIN 8.7 g/dL (12.0-18.0); BG VENT MODE VENT - A/C; BG VENT RATE 18 set
[2018-11-23] VITALS (14 sets, daily range): BP systolic 113–141; BP diastolic 55–98
[2018-11-23] MEDS: IPRATROPIUM/ALBUTEROL 0.5-3(2.5)MG/3ML NEB HHN SCH ×6 (00:17→20:32)
[2018-11-23] MEDS: LORAZEPAM 2MG/ML CPJ IV PRN ×4 (02:27→22:28)
[2018-11-23] MEDS: METOCLOPRAMIDE HCL 10MG/2ML VIAL IV SCH ×4 (06:36→23:32)
[2018-11-23 06:44] LABS: BASOPHILS % 0.6 % (0.0-2.0); EOSINOPHILS % 5.1 % (0.0-5.0); HEMATOCRIT. 23.9 % (36.0-48.0); HEMOGLOBIN. 7.9 g/dL (12.0-16.0); LYMPHOCYTES % 15.2 % (20.0-50.0); MEAN CORPUSCULAR HEMOGLOBIN 27.3 pg (28.0-32.0); MEAN CORPUSCULAR VOLUME 82.2 fL (81.0-99.0); MONOCYTES % 8.5 % (2.0-8.0); NEUTROPHILS % 70.6 % (40.0-76.0); RED BLOOD CELL COUNT 2.91 mill/uL (4.2-5.4); RED CELL DISTRIBUTION WIDTH 22.4 % (11.6-14.6)
[2018-11-23 06:56] LABS: CHLORIDE 105 mEq/L (98-107)
[2018-11-23] MEDS: DOCUSATE SODIUM SUGAR FREE 100MG/10ML UDC NG SCH (08:55)
[2018-11-23] MEDS: PANTOPRAZOLE SODIUM 40 MG/VIAL IV SCH ×2 (08:55→21:30)
[2018-11-23] MEDS: ENOXAPARIN 120MG/0.8ML SYR SUBCUT SCH ×2 (08:56→21:31)
[2018-11-23] MEDS: POTASSIUM CHLORIDE INJ 30 MEQ in DEXTROSE 5% WATER 1,000 ML IV SCH (08:57)
[2018-11-23] MEDS: DIPHENHYDRAMINE 50MG/ML VIAL IV PRN ×2 (13:08→21:36)
[2018-11-24] VITALS (15 sets, daily range): BP systolic 114–141; BP diastolic 54–90
[2018-11-24] MEDS: IPRATROPIUM/ALBUTEROL 0.5-3(2.5)MG/3ML NEB HHN SCH ×3 (00:26→20:38)
[2018-11-24] MEDS: POTASSIUM CHLORIDE INJ 30 MEQ in DEXTROSE 5% WATER 1,000 ML IV SCH ×2 (01:32→09:59)
[2018-11-24] MEDS: LORAZEPAM 2MG/ML CPJ IV PRN ×3 (05:25→18:39)
[2018-11-24] MEDS: METOCLOPRAMIDE HCL 10MG/2ML VIAL IV SCH (05:25)
[2018-11-24 06:32] LABS: BASOPHILS % 0.6 % (0.0-2.0); EOSINOPHILS % 5.2 % (0.0-5.0); HEMATOCRIT. 28.6 % (36.0-48.0); HEMOGLOBIN. 9.1 g/dL (12.0-16.0); LYMPHOCYTES % 12.4 % (20.0-50.0); MEAN CORPUSCULAR HEMOGLOBIN 26.7 pg (28.0-32.0); MEAN CORPUSCULAR VOLUME 84.1 fL (81.0-99.0); MONOCYTES % 7.5 % (2.0-8.0); NEUTROPHILS % 74.3 % (40.0-76.0); RED CELL DISTRIBUTION WIDTH 22.1 % (11.6-14.6)
[2018-11-24 06:57] LABS: CHLORIDE 105 mEq/L (98-107)
[2018-11-24] MEDS: DIPHENHYDRAMINE 50MG/ML VIAL IV PRN ×3 (07:01→19:55)
[2018-11-24] MEDS: ACETAMINOPHEN 325MG TABLET PO PRN ×3 (08:09→20:24)
[2018-11-24] MEDS: DOCUSATE SODIUM SUGAR FREE 100MG/10ML UDC NG SCH (08:41)
[2018-11-24] MEDS: ENOXAPARIN 120MG/0.8ML SYR SUBCUT SCH ×2 (09:58→20:10)
[2018-11-24] MEDS: PANTOPRAZOLE SODIUM 40 MG/VIAL IV SCH ×2 (09:58→20:09)
[2018-11-24] MEDS: RISPERIDONE 1MG TABLET PO SCH ×2 (13:40→20:10)
[2018-11-24] MEDS: FERROUS SULFATE 325MG TABLET PO SCH ×2 (13:40→18:40)
[2018-11-25] VITALS (12 sets, daily range): BP systolic 102–130; BP diastolic 57–91
[2018-11-25] MEDS: IPRATROPIUM/ALBUTEROL 0.5-3(2.5)MG/3ML NEB HHN SCH ×7 (00:14→23:59)
[2018-11-25] MEDS: LORAZEPAM 2MG/ML CPJ IV PRN ×5 (02:10→20:37)
[2018-11-25] MEDS: DIPHENHYDRAMINE 50MG/ML VIAL IV PRN ×2 (03:06→19:01)
[2018-11-25 05:37] LABS: BASOPHILS % 0.3 % (0.0-2.0); EOSINOPHILS % 4.7 % (0.0-5.0); HEMOGLOBIN. 7.8 g/dL (12.0-16.0); LYMPHOCYTES % 9.4 % (20.0-50.0); MEAN CORPUSCULAR VOLUME 82.6 fL (81.0-99.0); NEUTROPHILS % 79.6 % (40.0-76.0); PLATELET 160 x1000/uL (130-400); RED BLOOD CELL COUNT 2.91 mill/uL (4.2-5.4); RED CELL DISTRIBUTION WIDTH 21.8 % (11.6-14.6)
[2018-11-25 06:08] LABS: CHLORIDE 103 mEq/L (98-107)
[2018-11-25] MEDS: PANTOPRAZOLE SODIUM 40 MG/VIAL IV SCH ×2 (08:52→20:36)
[2018-11-25] MEDS: FERROUS SULFATE 325MG TABLET PO SCH ×3 (08:52→18:06)
[2018-11-25] MEDS: RISPERIDONE 1MG TABLET PO SCH ×2 (08:52→20:37)
[2018-11-25] MEDS: ENOXAPARIN 120MG/0.8ML SYR SUBCUT SCH ×2 (08:53→20:37)
[2018-11-25 15:24] LABS: CLARITY URINE CLOUDY (CLEAR); COLOR URINE YELLOW (YELLOW); KETONES URINE NEGATIVE (NEGATIVE); LEUKOCYTE ESTERASE URINE TRACE (NEGATIVE); NITRITE URINE NEGATIVE (NEGATIVE); OCCULT BLOOD URINE 3+ (NEGATIVE); PH URINE 7.5 (4.5-8.0); PROTEIN URINE 1+ (NEGATIVE); SPECIFIC GRAVITY URINE 1.015 (1.005-1.030); UROBILINOGEN URINE 0.2 E.U./dL (0.2-1.0)
[2018-11-26] VITALS (12 sets, daily range): BP systolic 116–136; BP diastolic 49–80
[2018-11-26] MEDS: LORAZEPAM 2MG/ML CPJ IV PRN ×5 (03:31→21:48)
[2018-11-26] MEDS: IPRATROPIUM/ALBUTEROL 0.5-3(2.5)MG/3ML NEB HHN SCH ×5 (04:22→20:45)
[2018-11-26 07:33] LABS: BASOPHILS % 0.7 % (0.0-2.0); EOSINOPHILS % 4.5 % (0.0-5.0); HEMATOCRIT. 25.1 % (36.0-48.0); HEMOGLOBIN. 8.4 g/dL (12.0-16.0); LYMPHOCYTES % 10.5 % (20.0-50.0); MEAN CORPUSCULAR HEMOGLOBIN 27.5 pg (28.0-32.0); MEAN CORPUSCULAR VOLUME 82.4 fL (81.0-99.0); MONOCYTES % 6.1 % (2.0-8.0); NEUTROPHILS % 78.2 % (40.0-76.0); RED BLOOD CELL COUNT 3.05 mill/uL (4.2-5.4); RED CELL DISTRIBUTION WIDTH 21.9 % (11.6-14.6)
[2018-11-26 07:41] LABS: CHLORIDE 103 mEq/L (98-107)
[2018-11-26] MEDS: RISPERIDONE 1MG TABLET PO SCH ×3 (08:27→20:52)
[2018-11-26] MEDS: PANTOPRAZOLE SODIUM 40 MG/VIAL IV SCH (08:27)
[2018-11-26] MEDS: FERROUS SULFATE 325MG TABLET PO SCH ×3 (08:27→18:24)
[2018-11-26] MEDS: ENOXAPARIN 120MG/0.8ML SYR SUBCUT SCH (08:28)
[2018-11-26] MEDS: ACETAMINOPHEN 325MG TABLET PO PRN (09:33)
[2018-11-26 10:24] LABS: BG BASE EXCESS 2.5 mmol/L (-2.0-2.0); BG CARBOXYHEMOGLOBIN 0.3 % (0.5-1.5); BG DEOXYHEMOGLOBIN 4.3 % (0.0-5.0); BG FRACTION INSPIRED OXYGEN 40; BG METHEMOGLOBIN 0.2 % (0.0-1.5); BG OXYGEN SATURATION 95.7 % (92.0-98.5); BG OXYHEMOGLOBIN 95.2 % (94.0-97.0); BG PCO2 41.6 mmHg (35.0-45.0); BG PO2 87.2 mmHg (75.0-100.0); BG SAMPLE SITE RIGHT RADIAL; BG TIDAL VOLUME(mL) 550 mL; BG TOTAL HEMOGLOBIN 9.6 g/dL (12.0-18.0); BG VENT MODE VENT - A/C; BG VENT RATE 18 set
[2018-11-26] MEDS: OMEPRAZOLE 20MG CAPSULE EXTENDED RELEASE PO SCH (11:01)
[2018-11-26] MEDS: CEFEPIME 1,000 MG in DEXTROSE 5% WATER 50 ML IV SCH (14:05)
[2018-11-26] MEDS: OXYMETAZOLINE HCL NASAL SPRAY 15ML BOTHNSTRLS SCH (15:22)
[2018-11-26] MEDS: GUAIFENESIN-DM 200MG-20MG/10ML UDC PO PRN (20:52)
[2018-11-26] MEDS: DIPHENHYDRAMINE 50MG/ML VIAL IV PRN (20:53)
[2018-11-27] VITALS (19 sets, daily range): BP systolic 100–131; BP diastolic 58–81
[2018-11-27] MEDS: IPRATROPIUM/ALBUTEROL 0.5-3(2.5)MG/3ML NEB HHN SCH ×6 (00:52→19:59)
[2018-11-27] MEDS: CEFEPIME 1,000 MG in DEXTROSE 5% WATER 50 ML IV SCH ×2 (02:41→14:00)
[2018-11-27] MEDS: OXYMETAZOLINE HCL NASAL SPRAY 15ML BOTHNSTRLS SCH (02:42)
[2018-11-27] MEDS: LORAZEPAM 2MG/ML CPJ IV PRN ×4 (03:30→16:46)
[2018-11-27] MEDS: GUAIFENESIN-DM 200MG-20MG/10ML UDC PO PRN (03:49)
[2018-11-27] MEDS: OMEPRAZOLE 20MG CAPSULE EXTENDED RELEASE PO SCH (06:31)
[2018-11-27 06:39] LABS: BASOPHILS % 0.7 % (0.0-2.0); EOSINOPHILS % 4.6 % (0.0-5.0); HEMATOCRIT. 25.1 % (36.0-48.0); HEMOGLOBIN. 8.2 g/dL (12.0-16.0); LYMPHOCYTES % 7.6 % (20.0-50.0); MEAN CORPUSCULAR HEMOGLOBIN 27.1 pg (28.0-32.0); MEAN CORPUSCULAR VOLUME 82.4 fL (81.0-99.0); MEAN PLATELET VOLUME 8.6 fl (7.4-10.4); MONOCYTES % 6.6 % (2.0-8.0); NEUTROPHILS % 80.5 % (40.0-76.0); PLATELET 200 x1000/uL (130-400); RED BLOOD CELL COUNT 3.04 mill/uL (4.2-5.4)
[2018-11-27 07:31] LABS: CHLORIDE 104 mEq/L (98-107)
[2018-11-27] MEDS: FERROUS SULFATE 325MG TABLET PO SCH ×3 (08:00→18:00)
[2018-11-27] MEDS: RISPERIDONE 1MG TABLET PO SCH ×2 (09:00→21:51)
[2018-11-27] MEDS ORDERED: HALOPERIDOL LACTATE 5MG/ML VIAL IM NR (13:30)
[2018-11-27] MEDS ORDERED: MORPHINE SULFATE 4 MG/ML CPJ (NOT FOR IM USE) IV NR ×2 (14:00→14:15)
[2018-11-27] MEDS ORDERED: MORPHINE SULFATE 2 MG/ML CPJ (NOT FOR IM USE) IV ONE (14:15)
[2018-11-27] MEDS: DIPHENHYDRAMINE 50MG/ML VIAL IV PRN (17:59)
[2018-11-28] VITALS (13 sets, daily range): BP systolic 42–166; BP diastolic 16–100
[2018-11-28] MEDS: LORAZEPAM 2MG/ML CPJ IV PRN (01:03)
[2018-11-28] MEDS: DIPHENHYDRAMINE 50MG/ML VIAL IV PRN ×2 (01:19→20:12)
[2018-11-28] MEDS: CEFEPIME 1,000 MG in DEXTROSE 5% WATER 50 ML IV SCH ×2 (01:37→16:13)
[2018-11-28] MEDS: IPRATROPIUM/ALBUTEROL 0.5-3(2.5)MG/3ML NEB HHN SCH ×4 (01:51→21:15)
[2018-11-28] MEDS: FERROUS SULFATE 325MG TABLET PO SCH ×3 (08:39→18:17)
[2018-11-28] MEDS: OMEPRAZOLE 20MG CAPSULE EXTENDED RELEASE PO SCH (08:39)
[2018-11-28] MEDS: RISPERIDONE 1MG TABLET PO SCH ×2 (08:39→21:10)
[2018-11-28 09:16] LABS: BG BASE EXCESS 2.6 mmol/L (-2.0-2.0); BG CARBOXYHEMOGLOBIN 0.4 % (0.5-1.5); BG DEOXYHEMOGLOBIN 1.8 % (0.0-5.0); BG FRACTION INSPIRED OXYGEN 40; BG HCO3 ACT 27.3 mmol/L (22.0-26.0); BG OXYGEN SATURATION 98.2 % (92.0-98.5); BG OXYHEMOGLOBIN 96.8 % (94.0-97.0); BG PCO2 42.4 mmHg (35.0-45.0); BG PH 7.426 (7.350-7.450); BG PO2 128.3 mmHg (75.0-100.0); BG SAMPLE SITE LEFT RADIAL; BG TIDAL VOLUME(mL) 500 mL; BG TOTAL HEMOGLOBIN 7.9 g/dL (12.0-18.0); BG VENT MODE VENT - A/C; BG VENT RATE 10 set
[2018-11-29] VITALS (12 sets, daily range): BP systolic 114–148; BP diastolic 59–103
[2018-11-29] MEDS: LORAZEPAM 2MG/ML CPJ IV PRN ×3 (01:42→15:42)
[2018-11-29] MEDS: IPRATROPIUM/ALBUTEROL 0.5-3(2.5)MG/3ML NEB HHN SCH ×4 (01:45→21:02)
[2018-11-29] MEDS: CEFEPIME 1,000 MG in DEXTROSE 5% WATER 50 ML IV SCH ×2 (01:46→14:49)
[2018-11-29 07:10] LABS: BASOPHILS % 0.3 % (0.0-2.0); EOSINOPHILS % 3.4 % (0.0-5.0); HEMATOCRIT. 27.2 % (36.0-48.0); HEMOGLOBIN. 8.8 g/dL (12.0-16.0); MEAN CORPUSCULAR HEMOGLOBIN 26.9 pg (28.0-32.0); MEAN CORPUSCULAR VOLUME 83.5 fL (81.0-99.0); MONOCYTES % 7.1 % (2.0-8.0); NEUTROPHILS % 80.2 % (40.0-76.0); RED BLOOD CELL COUNT 3.26 mill/uL (4.2-5.4); RED CELL DISTRIBUTION WIDTH 20.4 % (11.6-14.6)
[2018-11-29 07:17] LABS: CHLORIDE 104 mEq/L (98-107)
[2018-11-29] MEDS: OMEPRAZOLE 20MG CAPSULE EXTENDED RELEASE PO SCH (08:45)
[2018-11-29] MEDS: RISPERIDONE 1MG TABLET PO SCH ×2 (08:45→20:42)
[2018-11-29] MEDS: FERROUS SULFATE 325MG TABLET PO SCH ×3 (08:45→18:38)
[2018-11-29] MEDS ORDERED: FAMOTIDINE 20MG TABLET PO SCH (09:00)
[2018-11-29] MEDS ORDERED: ALTEPLASE 2MG/VIAL ITC NR (11:15)
[2018-11-30] VITALS (12 sets, daily range): BP systolic 112–157; BP diastolic 50–86
[2018-11-30] MEDS: CEFEPIME 1,000 MG in DEXTROSE 5% WATER 50 ML IV SCH ×2 (01:59→13:26)
[2018-11-30] MEDS: IPRATROPIUM/ALBUTEROL 0.5-3(2.5)MG/3ML NEB HHN SCH ×4 (02:26→19:53)
[2018-11-30] MEDS: OMEPRAZOLE 20MG CAPSULE EXTENDED RELEASE PO SCH (06:08)
[2018-11-30] MEDS: RISPERIDONE 1MG TABLET PO SCH ×2 (08:55→21:34)
[2018-11-30] MEDS: FERROUS SULFATE 325MG TABLET PO SCH ×3 (08:55→17:33)
[2018-11-30] MEDS: LORAZEPAM 2MG/ML CPJ IV PRN ×2 (14:17→21:34)
[2018-12-01] VITALS (13 sets, daily range): BP systolic 130–165; BP diastolic 62–128
[2018-12-01] MEDS: IPRATROPIUM/ALBUTEROL 0.5-3(2.5)MG/3ML NEB HHN SCH ×4 (00:14→19:35)
[2018-12-01] MEDS: CEFEPIME 1,000 MG in DEXTROSE 5% WATER 50 ML IV SCH ×2 (02:47→14:00)
[2018-12-01] MEDS: RISPERIDONE 1MG TABLET PO SCH ×2 (09:29→20:02)
[2018-12-01] MEDS: FERROUS SULFATE 325MG TABLET PO SCH ×3 (09:29→17:13)
[2018-12-01] MEDS: FAMOTIDINE 20MG TABLET PO SCH ×2 (09:29→20:02)
[2018-12-01] MEDS: LORAZEPAM 2MG/ML CPJ IV PRN ×2 (14:00→19:48)
[2018-12-01] MEDS: GUAIFENESIN-DM 200MG-20MG/10ML UDC PO PRN (19:48)
[2018-12-02] VITALS (12 sets, daily range): BP systolic 106–169; BP diastolic 61–98
[2018-12-02] MEDS: IPRATROPIUM/ALBUTEROL 0.5-3(2.5)MG/3ML NEB HHN SCH ×4 (00:12→20:07)
[2018-12-02] MEDS: CEFEPIME 1,000 MG in DEXTROSE 5% WATER 50 ML IV SCH ×2 (01:45→13:21)
[2018-12-02] MEDS: RISPERIDONE 1MG TABLET PO SCH (08:41)
[2018-12-02] MEDS: FERROUS SULFATE 325MG TABLET PO SCH ×3 (08:41→18:20)
[2018-12-02] MEDS: FAMOTIDINE 20MG TABLET PO SCH ×2 (08:41→21:06)
[2018-12-02] MEDS: LORAZEPAM 2MG/ML CPJ IV PRN ×2 (08:41→15:26)
[2018-12-02] MEDS ORDERED: LORAZEPAM 2MG/ML CPJ IV PRN (17:00)
[2018-12-02] MEDS ORDERED: MORPHINE SULFATE 4 MG/ML CPJ (NOT FOR IM USE) IV PRN (17:00)
[2018-12-02] MEDS ORDERED: HYDROCODONE/ACETAMINOPHEN 10/325MG TABLET PO PRN (17:00)
[2018-12-02] MEDS ORDERED: QUETIAPINE FUMARATE 50MG TABLET PO SCH (21:00)
[2018-12-02] MEDS: DIPHENHYDRAMINE 50MG/ML VIAL IV PRN (21:29)
== END 2018-12-02 22:00 | DRG 4 ==
LOC: ER 06:41 → EDBEDREQ 12:46 → EDBEDREQTM 12:46 → 5EST 13:49 → EDBEDREQTM 13:51 → EDBEDREQSVC 13:51 → EDBEDREQ 13:51 → ENRESERV 23:24 → MICUSO 10-22 20:50 → 8WST 11-05 11:30 → CVICU 11-10 05:40 → 5EST 11-20 13:00
PROVIDERS: ADMIT Internal Medicine; ATTEND Internal Medicine
PROC: 5A09357 Assistance with Respiratory Ventilation, Less than 24 Consecutive Hours, Continuous Positive Airway Pressure (ICD-10-PCS; 2018-10-22)
PROC: 5A1955Z Respiratory Ventilation, Greater than 96 Consecutive Hours (ICD-10-PCS; principal; 2018-10-23)
PROC: 0BH17EZ Insertion of Endotracheal Airway into Trachea, Via Natural or Artificial Opening (ICD-10-PCS; 2018-10-23)
PROC: 30233N1 Transfusion of Nonautologous Red Blood Cells into Peripheral Vein, Percutaneous Approach (ICD-10-PCS; 2018-10-23)
PROC: 02HV33Z Insertion of Infusion Device into Superior Vena Cava, Percutaneous Approach (ICD-10-PCS; 2018-10-23)
PROC: B548ZZA Ultrasonography of Superior Vena Cava, Guidance (ICD-10-PCS; 2018-10-23)
PROC: 5A09357 Assistance with Respiratory Ventilation, Less than 24 Consecutive Hours, Continuous Positive Airway Pressure (ICD-10-PCS; 2018-10-23)
PROC: 0DH63UZ Insertion of Feeding Device into Stomach, Percutaneous Approach (ICD-10-PCS; 2018-11-01)
PROC: 30233K1 Transfusion of Nonautologous Frozen Plasma into Peripheral Vein, Percutaneous Approach (ICD-10-PCS; 2018-11-10)
PROC: 0DB68ZX Excision of Stomach, Via Natural or Artificial Opening Endoscopic, Diagnostic (ICD-10-PCS; 2018-11-11)
PROC: 0DH63UZ Insertion of Feeding Device into Stomach, Percutaneous Approach (ICD-10-PCS; 2018-11-11)
PROC: 5A09357 Assistance with Respiratory Ventilation, Less than 24 Consecutive Hours, Continuous Positive Airway Pressure (ICD-10-PCS; 2018-11-12)
PROC: 0BH17EZ Insertion of Endotracheal Airway into Trachea, Via Natural or Artificial Opening (ICD-10-PCS; 2018-11-13)
PROC: 5A1955Z Respiratory Ventilation, Greater than 96 Consecutive Hours (ICD-10-PCS; 2018-11-13)
PROC: 5A09357 Assistance with Respiratory Ventilation, Less than 24 Consecutive Hours, Continuous Positive Airway Pressure (ICD-10-PCS; 2018-11-13)
PROC: 0B113F4 Bypass Trachea to Cutaneous with Tracheostomy Device, Percutaneous Approach (ICD-10-PCS; 2018-11-18)
PROC: 0GTJ0ZZ Resection of Thyroid Gland Isthmus, Open Approach (ICD-10-PCS; 2018-11-18)
DX: I21.4 Non-ST elevation (NSTEMI) myocardial infarction (principal); I26.99 Other pulmonary embolism without acute cor pulmonale; I63.9 Cerebral infarction, unspecified; I62.9 Nontraumatic intracranial hemorrhage, unspecified; J69.0 Pneumonitis due to inhalation of food and vomit; N17.0 Acute kidney failure with tubular necrosis; R57.1 Hypovolemic shock; A41.9 Sepsis, unspecified organism; G93.41 Metabolic encephalopathy; J96.02 Acute respiratory failure with hypercapnia; B37.49 Other urogenital candidiasis; J96.01 Acute respiratory failure with hypoxia; J98.11 Atelectasis; I50.33 Acute on chronic diastolic (congestive) heart failure; I27.20 Pulmonary hypertension, unspecified; E44.0 Moderate protein-calorie malnutrition; D50.9 Iron deficiency anemia, unspecified; K80.20 Calculus of gallbladder without cholecystitis without obstruction; E87.2 Acidosis; D68.59 Other primary thrombophilia; E72.20 Disorder of urea cycle metabolism, unspecified; E83.52 Hypercalcemia; E83.39 Other disorders of phosphorus metabolism; E87.0 Hyperosmolality and hypernatremia; E87.6 Hypokalemia; F03.90 Unspecified dementia, unspecified severity, without behavioral disturbance, psychotic disturbance, mood disturbance, and anxiety; I07.1 Rheumatic tricuspid insufficiency; I11.0 Hypertensive heart disease with heart failure; H47.619 Cortical blindness, unspecified side of brain; H54.7 Unspecified visual loss; J84.9 Interstitial pulmonary disease, unspecified; K25.4 Chronic or unspecified gastric ulcer with hemorrhage; R13.12 Dysphagia, oropharyngeal phase; K29.70 Gastritis, unspecified, without bleeding; E66.2 Morbid (severe) obesity with alveolar hypoventilation; J44.1 Chronic obstructive pulmonary disease with (acute) exacerbation; J44.0 Chronic obstructive pulmonary disease with (acute) lower respiratory infection; G81.90 Hemiplegia, unspecified affecting unspecified side; Z99.11 Dependence on respirator [ventilator] status; I25.2 Old myocardial infarction; Z93.1 Gastrostomy status; Z91.19 Patient's noncompliance with other medical treatment and regimen; Z86.711 Personal history of pulmonary embolism; Z82.49 Family history of ischemic heart disease and other diseases of the circulatory system; Z59.0 Homelessness; Z68.43 Body mass index [BMI] 50.0-59.9, adult
CPT/HCPCS: 36415; 36569; 36600; 70544; 70551; 70553; 71045; 71275; 76700; 76770; 76937; 80048; 80061; 80202; 80305; 82140; 82375; 82550; 82553; 82570; 82607; 82728; 82746; 82805; 82962; 83036; 83540; 83550; 83735; 83880; 83935; 84100; 84134; 84145; 84300; 84439; 84443; 84478; 84484; 84703; 85007; 85014; 85018; 85027; 85044; 85049; 85379; 85384; 85576; 86705; 86709; 86803; 86850; 86900; 86920; 86927; 87015; 87045; 87070; 87077; 87106; 87186; 87340; 87427; 87449; 87804; 88305; 88312; 88313; 92610; 93005; 93306; 93880; 93970; 94002; 94003; 94640; 97110; 97112; 97163; 97164; 97166; 97168; 97530; 97535; 99285; A6261; C1725; C1769; C1893; C9113; J0690; J0692; J1100; J1160; J1200; J1630; J1650; J1815; J1940; J2060; J2185; J2250; J2270; J2354; J2370; J2405; J2543; J2704; J2765; J2920; J2997; J3010; J3370; J3475; J3480; J3490; J7040; J7050; J7060; J7070; J7620; P9016; P9017; P9021; P9047; Q9967; A4315